=== PATIENT | male | born 1950 | race Caucasian/White ===

== ENCOUNTER 2018-06-26 12:43 | Day surgery (SDC) | END 2018-06-26 16:39 | disposition home or self-care (01) ==

== ENCOUNTER 2018-11-24 02:49 | Inpatient (IN) | payer OTHER ==
[~2018-11-24] VITALS: Ht 180.3 cm; Wt 82.6 kg
[2018-11-24] VITALS (11 sets, daily range): BP systolic 106–121; BP diastolic 59–77; PULSE 43–78; RESP 18–20; Ht 180.3 cm; Wt 82.6 kg
[2018-11-24] MEDS ORDERED: GEMF600T PO (04:28)
[2018-11-24] MEDS ORDERED: CHOL100062 PO (04:28)
[2018-11-24] MEDS ORDERED: OMEP20CA16 PO (04:28)
[2018-11-24] MEDS ORDERED: PROP10TA6 PO (04:28)
[2018-11-24] MEDS ORDERED: ATOR40TA68 PO (04:28)
[2018-11-24] MEDS ORDERED: CAPT25TA3 PO (04:28)
[2018-11-24] MEDS ORDERED: ASPI-817 PO (04:35)
[2018-11-24] MEDS ORDERED: NACL 0.9% 3 ML SYG IV SCH (05:00)
[2018-11-24] MEDS ORDERED: BISACODYL (EC) 5 MG TAB PO PRN (05:00)
[2018-11-24] MEDS ORDERED: ACETAMINOPHEN 325 MG TAB PO PRN (05:00)
[2018-11-24] MEDS ORDERED: DOCUSATE SODIUM 100 MG CAP PO PRN (05:00)
[2018-11-24] MEDS: PANTOPRAZOLE (EC) 40 MG TAB PO SCH (05:56)
--- NOTE | 2018-11-24 08:48 | HP ---
Date/Time of Note Date/Time of Note DATE: 11/24/18 TIME: 08:45 Assessment/Plan VTE Prophylaxis Risk score (from Nsg)>0 risk: 2 SCD applied (from Nsg): Yes Pharmacological prophylaxis: NA/contraindicated Pharm contraindication: low risk/ambulating Lines/Catheters IV Catheter Type (from Nrsg): Peripheral IV Assessment/Plan Hospital Course SUBJECTIVE: Walking in room, no acute distress. No chest pain, palpitation, shortness of breath, nausea, vomiting or other distress. OBJECTIVE: Vital signs-see below PHYSICAL EXAM: Constitutional: Well-developed, adequately built, lying in bed comfortably. Psych: nl mood/affect, no complaints Head: atraumatic, normocephalic Eyes: nl conjunctiva, nl sclera ENMT: mucosa pink and moist, nl external ears & nose Neck: non-tender, supple Respiratory: clear to auscultation, normal air movement Cardiovascular: nl pulses, regular rate and rhythm Gastrointestinal: non-tender, soft, bowel sounds active in all 4 quadrants. Musculoskeletal/extremities: nl extremities to inspection, motor strength equal bilaterally, no focal deficit. Normal pulses,no cyanosis, no edema. Neurological: Alert oriented 3,nl speech, nl strength Skin: nl turgor ASSESSMENT/PLAN: 68-year-old Farsi speaking male with a history of hypertension, hyperlipidemia, presented to outside hospital with sudden onset of left-sided chest pain with radiation to left, associated with cold sweats and mild shortness of breath. 1.Exertional Chest pain, rule out acute coronary syndrome. -Admit to telemetry floor. Aspirin, PRN nitroglycerin, PRN morphine and oxygen if indicated. -In light of high risk factors, classic angina-like pain, no cardiac workup in the past, patient would need further cardiac risk stratification/at the least a stress test=>Cardiology consult. -Meanwhile, we will rule out ACS with 3 sets of cardiac enzymes, repeat EKG. -Obtain a 2D echocardiogram as well. 2. Essential hypertension. -Patient with symptomatic bradycardia, hold propranolol which he takes at home. Continue MARILUZ inhibitor for blood pressure management. 3. Dyslipidemia -We will start patient on statin.cont.Lopid -Obtain a lipid panel and treat accordingly. 4. Sinus Bradycardia, asymptomatic -Again, we will hold propranolol and will monitor patient on telemetry. Follow- up cardiology recommendations. 5. Tobacco use/marijuana use/alcohol use. -Cessation advised. DVT prophylaxis: SCDs Due to prophylaxis: Not indicated CODE STATUS: Full code Diet: Low-cholesterol/low-fat diet. Rest of the management depend on hospital course. Approximately 60 m spent on this history and physical. Patient was seen in collaboration with Dr. Bran. Result Diagram: 11/24/18 0507 11/24/18 0507 Results 24hrs Laboratory Tests Test 11/24/18 05:07 White Blood Count 7.8 Red Blood Count 4.83 Hemoglobin 14.7 Hematocrit 44.3 Mean Corpuscular Volume 91.7 Mean Corpuscular Hemoglobin 30.4 Mean Corpuscular Hemoglobin Concent 33.2 Red Cell Distribution Width 13.0 Platelet Count 223 Mean Platelet Volume 10.8 H Immature Granulocytes % 0.300 Neutrophils % 33.8 L Lymphocytes % 45.6 Monocytes % 15.1 H Eosinophils % 4.6 Basophils % 0.6 Nucleated Red Blood Cells % 0.0 Immature Granulocytes # 0.020 Neutrophils # 2.6 Lymphocytes # 3.6 H Monocytes # 1.2 H Eosinophils # 0.4 Basophils # 0.1 Nucleated Red Blood Cells # 0.0 Sodium Level 142 Potassium Level 4.0 Chloride Level 105 Carbon Dioxide Level 26 Anion Gap 11 Blood Urea Nitrogen 19 Creatinine 1.15 Est Glomerular Filtrat Rate mL/min > 60 Glucose Level 94 Hemoglobin A1c 5.1 Calcium Level 10.1 Magnesium Level 2.1 Total Bilirubin 0.8 Direct Bilirubin 0.00 Indirect Bilirubin 0.8 Aspartate Amino Transf (AST/SGOT) 25 Alanine Aminotransferase (ALT/SGPT) 31 Alkaline Phosphatase 67 Creatine Kinase 98 Creatine Kinase Index 3.2 Creatinine Kinase MB (Mass) 3.10 H Troponin I < 0.012 Total Protein 7.5 Albumin 4.1 Globulin 3.40 H Albumin/Globulin Ratio 1.20 Triglycerides Level 83 Cholesterol Level 144 LDL Cholesterol, Calculated 82 HDL Cholesterol 45 Cholesterol/HDL Ratio 3.2 Thyroid Stimulating Hormone (TSH) 1.090 HPI/ROS Admit Date/Time Admit Date/Time Nov 24, 2018 at 03:54 Hx of Present Illness This is a 68-year-old Farsi speaking male with a history of hypertension, hyperlipidemia, initially presented to outside hospital where he presented with sudden onset of left-sided chest pain with radiation to left arm started overnight. Patient also had associated cold sweats, and mild shortness of breath. His symptoms were not related to any activities or rest. There was no alleviating or exacerbating factors. Patient denied similar episodes in the past. He never had any stress test or other cardiac intervention. Patient also does smoke 2 cigarettes every night, drink alcohol 3-4 times a week and smoke marijuana daily. Outside hospital initial labs unremarkable with a normal troponin. Twelve-lead EKG showed sinus rhythm with possible left anterior fascicular block. There was no acute ST or T wave changes. Patient was transferred to [facility] due to insurance capitation. ROS A 12 point review of system was assessed and is negative other than what is mentioned in the HPI. PMH/Family/Social Past Medical History See HPI Medications Current Medications IV Flush (NS 3 ml) 3 ml PER PROTOCOL IV ; Start 11/24/18 at 05:00 Nitroglycerin (Nitroglycerin (Sl Tab) 0.4 Mg) 1 tab Q5M PRN SL .CHEST PAIN; Start 11/24/18 at 05:00 Acetaminophen (Tylenol Tab) 650 mg Q6H PRN PO .PAIN 1-3 OR TEMP; Start 11/24/18 at 05:00 Docusate Sodium (Colace) 100 mg Q12H PRN PO .CONSTIPATION; Start 11/24/18 at 05:00 Bisacodyl (Dulcolax) 5 mg DAILY PRN PO .CONSTIPATION; Start 11/24/18 at 05:00 Aspirin (Halfprin) 81 mg DAILY PO ; Start 11/24/18 at 09:00 Atorvastatin Calcium (Lipitor) 20 mg DAILY@21 PO ; Start 11/24/18 at 21:00 Captopril (Capoten) 25 mg DAILY PO ; Start 11/24/18 at 09:00 Cholecalciferol (Vitamin D) 1,000 unit DAILY PO ; Start 11/24/18 at 09:00 Gemfibrozil (Lopid) 600 mg BID PO ; Start 11/24/18 at 09:00 Propranolol HCl (Inderal) 10 mg DAILY PO ; Start 11/24/18 at 09:00; Status Future Hold Pantoprazole (Protonix Tab) 40 mg DAILY@06 PO Last administered on 11/24/18at 05:56; Admin Dose 40 MG; Start 11/24/18 at 06:00 Coded Allergies: No Known Allergy (Unverified , 11/24/18) Past Surgical History None Social History Smokes 3 cigarettes/day, drinks alcohol 4 times a week. Smokes marijuana every day. Smoking Status: Never smoker Exam/Review of Systems Vital Signs Vitals Vital Signs Date Temp Pulse Resp B/P (MAP) Pulse Ox O2 O2 Flow FiO2 Time Delivery Rate 11/24/18 97.9 53 18 110/59 98 Room Air 07:49 (76) Intake and Output 11/23/18 11/23/18 11/24/18 1515:00 23:00 07:00 IntakeIntake Total 240 ml BalanceBalance 240 ml YANET COLLADO NP Nov 24, 2018 08:48
[2018-11-24] MEDS: CHOLECALCIFEROL 1,000 UNIT TAB PO SCH (08:50)
[2018-11-24] MEDS: ASPIRIN (EC) 81 MG TAB PO SCH (08:50)
[2018-11-24] MEDS: GEMFIBROZIL 600 MG TAB PO SCH ×2 (08:50→20:27)
[2018-11-24] MEDS ORDERED: PROPRANOLOL 10 MG TAB PO SCH (09:00)
--- NOTE | 2018-11-24 14:38 | RADRPT ---
Echocardiogram Report Patient Name: HOLLI CAALPatient ID: [id number] : 1950 (68y 9m)Study Date: 11/24/2018 9:03:05 AM Gender: MAccession #: [id number] Tech: Andre Salazar [facility] Location: 532 Ref.Physician: LADARIUS BUENROSTRO Height(Cm): BSA: Weight(Kg): Quality: AdequateAccount #: Procedures: Echocardiographic Report: Transthoracic echocardiogram with complete 2D, M-Mode, and doppler examination. Indications: Chest Pain. Measurements: 2D/M Mode Doppler Measurement Value Normal Range Measurement Value Normal Range LVIDd 2D 4.5 [ 4.2 - 5.8 ] cm AV Peak Darin 1.3 [ 100.0 - 170.0 ] cm/sec LVIDs 2D 2.8 [ 2.5 - 4.0 ] cm AV Peak PG 6.0 [ 2.0 - 9.0 ] mmHg LVPWd 2D 1.1 [ 0.6 - 1.0 ] cm LVOT Peak Darin 0.7 [ 70.0 - 110.0 ] cm/sec IVSd 2D 1.3 [ 0.6 - 1.0 ] cm LVOT Peak PG 2.0 [ 2.0 - 6.0 ] mmHg AoR Diam 2D 3.0 [ 2.6 - 3.4 ] cm MV E Peak Darin 0.6 [ 60.0 - 130.0 ] cm/sec EDV 2D 91.0 [ 62.0 - 150.0 ] ml MV A Peak Darin 0.6 [ 100.0 - 120.0 ] cm/sec ESV 2D 28.5 [ 21.0 - 61.0 ] ml MV E/A 1.1 [ 0.8 - 1.5 ] ratio EF 2D 68.7 [ 52.0 - 72.0 ] percent MV Decel Time 215 [ 104 - 258 ] msec LA Dimen 2D 3.6 [ 3.0 - 4.0 ] cm Lat E` Darin 0.1 [ 10.0 - 15.0 ] cm/sec Lateral E/E` 7.9 [ 1.0 - 2.0 ] ratio Med E` Darin 0.1 cm/sec MV E/A 1.1 [ 0.8 - 1.5 ] ratio TR Peak Darin 2.2 [ 100.0 - 280.0 ] cm/sec TR Peak PG 19.0 mmHg RVSP 29.0 [ 10.0 - 36.0 ] mmHg Findings: Left Ventricle: Normal left ventricular systolic function. Normal left ventricular cavity size. Sigmoid septum. Ejection fraction is visually estimated at 65 %. Tissue Doppler/Mitral Doppler indices are consistent with impaired relaxation (Stage I diastolic dysfunction). Right Ventricle: Normal right ventricular size. Normal right ventricular systolic function. Left Atrium: The left atrium is normal in size. Right Atrium: The right atrium is normal in size. Mitral Valve: Mild mitral leaflet calcification. Mild mitral annular calcification. Trace mitral regurgitation. Aortic Valve: No significant aortic stenosis or insufficiency. Aortic cusps appear mildly calcified. Tricuspid Valve: Normal appearance of the tricuspid valve. Estimated peak PA systolic pressure 29 mmHg. There is mild tricuspid regurgitation. Pulmonic Valve: Pulmonic valve not well visualized. Pericardium: Normal pericardium with no significant pericardial effusion. Aorta: Normal aortic root. IVC: Normal size and normal respiratory collapse consistent with normal right atrial pressure. Conclusions: Normal left ventricular systolic function. Normal left ventricular cavity size. Sigmoid septum. Ejection fraction is visually estimated at 65 %. Tissue Doppler/Mitral Doppler indices are consistent with impaired relaxation (Stage I diastolic dysfunction). Mild mitral leaflet calcification. Mild mitral annular calcification. Trace mitral regurgitation. No significant aortic stenosis or insufficiency. Aortic cusps appear mildly calcified. Normal appearance of the tricuspid valve. Estimated peak PA systolic pressure 29 mmHg. There is mild tricuspid regurgitation. Electronically Signed By: Vincenzo Sanchez 2018-11-24 14:37:48 PDT
--- NOTE | 2018-11-24 15:24 | CONS ---
Assessment/Plan Assessment/Plan Hospital Course (Demo Recall) Chest pain: Rule out ACS Hypertension mild Smoker History of alcohol use Recommendations Continue with aspirin We will change captopril to twice daily dose. Patient already ate lunch and had coffee today. We will schedule him for a Lexiscan stress test tomorrow Cardiac echo have been negative so far Thank you for his referral. We will continue to follow with you JIE GILBERT MD [facility] Consultation Date/Type/Reason Admit Date/Time Nov 24, 2018 at 03:54 Date of Consultation: Nov 24, 2018 Type of Consult Cardiology Reason for Consultation cp Requesting Provider: YANET COLLADO NP Date/Time of Note DATE: 11/24/18 TIME: 15:20 Hx of Present Illness Interventional cardiology consultation note Chief complaint: chest pain/diaphoresis Reason for consult: chest pain History of present illness: Thank you for this referral. This is a 68-year-old gentleman with history of borderline hypertension, smoker who presents emergency above complaint. Patient stated that he had an episode of profuse sweating anterior/left-sided mild chest pain and discomfort color going to his left arm. The pain itself lasted short amount of time but the left arm pain lasted much longer. Patient did present to outside emergency room. Initial EKG did not show much of any ischemia. He was transferred to our facility because of insurance reason. Patient currently chest pain-free. Allergies: No known drug allergies Medications were reviewed as per medical reconciliation sheet Family history: No early coronary artery disease Social history: Smokes 3 cigarettes/day, drinks alcohol 4 times a week. Smokes marijuana every day. Past medical history: Hypertension dyslipidemia Review of system: Patient denies all others except for above-mentioned Past Medical History Home Meds Reported Medications Aspirin* (Aspirin* EC) 81 Mg Tablet.dr, 81 MG PO DAILY, TAB 11/24/18 Cholecalciferol* (Vitamin D3*) 1,000 Unit Tablet, 1000 UNIT PO DAILY, TAB 11/24/18 Atorvastatin* (Atorvastatin*) 40 Mg Tablet, 20 MG PO QHS, #30 TAB-CAP 11/24/18 Gemfibrozil* (Lopid*) 600 Mg Tablet, 600 MG PO BID, TAB 11/24/18 Omeprazole* (Omeprazole*) 20 Mg Capsule.dr, 20 MG PO DAILY, #30 CAP 11/24/18 Propranolol Hcl* (Propranolol Hcl*) 10 Mg Tablet, 10 MG PO DAILY, TAB 11/24/18 Captopril* (Captopril*) 25 Mg Tablet, 25 MG PO DAILY, #60 TAB 11/24/18 Discontinued Reported Medications [Asa 81] No Conflict Check 06/26/18 Medications Current Medications IV Flush (NS 3 ml) 3 ml PER PROTOCOL IV ; Start 11/24/18 at 05:00 Nitroglycerin (Nitroglycerin (Sl Tab) 0.4 Mg) 1 tab Q5M PRN SL .CHEST PAIN; Start 11/24/18 at 05:00 Acetaminophen (Tylenol Tab) 650 mg Q6H PRN PO .PAIN 1-3 OR TEMP; Start 11/24/18 at 05:00 Docusate Sodium (Colace) 100 mg Q12H PRN PO .CONSTIPATION; Start 11/24/18 at 0 5:00 Bisacodyl (Dulcolax) 5 mg DAILY PRN PO .CONSTIPATION; Start 11/24/18 at 05:00 Aspirin (Halfprin) 81 mg DAILY PO Last administered on 11/24/18at 08:50; Admin Dose 81 MG; Start 11/24/18 at 09:00 Atorvastatin Calcium (Lipitor) 20 mg DAILY@21 PO ; Start 11/24/18 at 21:00 Captopril (Capoten) 25 mg DAILY PO Last administered on 11/24/18at 09:50; Admin Dose 25 MG; Start 11/24/18 at 09:00 Cholecalciferol (Vitamin D) 1,000 unit DAILY PO Last administered on 11/24/18at 08:50; Admin Dose 1,000 UNIT; Start 11/24/18 at 09:00 Gemfibrozil (Lopid) 600 mg BID PO Last administered on 11/24/18at 08:50; Admin Dose 600 MG; Start 11/24/18 at 09:00 Propranolol HCl (Inderal) 10 mg DAILY PO ; Start 11/24/18 at 09:00; Status Hold Pantoprazole (Protonix Tab) 40 mg DAILY@06 PO Last administered on 11/24/18at 0 5:56; Admin Dose 40 MG; Start 11/24/18 at 06:00 Allergies: Coded Allergies: No Known Allergy (Unverified , 11/24/18) Social History Smoking Status: Never smoker Exam/Review of Systems Vital Signs Vitals Vital Signs Date Temp Pulse Resp B/P (MAP) Pulse Ox O2 O2 Flow FiO2 Time Delivery Rate 11/24/18 98.5 78 18 121/77 96 Room Air 15:09 (92) Intake and Output 11/23/18 11/23/18 11/24/18 1515:00 23:00 07:00 IntakeIntake Total 240 ml BalanceBalance 240 ml Exam Exam General: no acute distress HEENT: NC/AT. pupils are equal. round. NECK: NO JVD. no stridor. CV: RRR. systolic murmur; no gallop or rubs. PULM: no wheezing or rhonchi. GI: SOFT, NT, ND, no rebound or guarding Extremity: trace B/L LE edema. no clubbing. neuro: awake and alert, OX3. Psych: calm and pleasant rectal: deferred : normal Echocardiogram was personally reviewed which shows: Normal left ventricular systolic function. Normal left ventricular cavity size. Sigmoid septum. Ejection fraction is visually estimated at 65 %. Tissue Doppler/Mitral Doppler indices are consistent with impaired relaxation (Stage I diastolic dysfunction). Mild mitral leaflet calcification. Mild mitral annular calcification. Trace mitral regurgitation. No significant aortic stenosis or insufficiency. Aortic cusps appear mildly calcified. Normal appearance of the tricuspid valve. Estimated peak PA systolic pressure 29 mmHg. There is mild tricuspid regurgitation. Labs Result Diagram: 11/24/18 0507 11/24/18 0507 Results 24hrs Laboratory Tests Test 11/24/18 05:07 11/24/18 11:52 White Blood Count 7.8 Red Blood Count 4.83 Hemoglobin 14.7 Hematocrit 44.3 Mean Corpuscular Volume 91.7 Mean Corpuscular Hemoglobin 30.4 Mean Corpuscular Hemoglobin Concent 33.2 Red Cell Distribution Width 13.0 Platelet Count 223 Mean Platelet Volume 10.8 H Immature Granulocytes % 0.300 Neutrophils % 33.8 L Lymphocytes % 45.6 Monocytes % 15.1 H Eosinophils % 4.6 Basophils % 0.6 Nucleated Red Blood Cells % 0.0 Immature Granulocytes # 0.020 Neutrophils # 2.6 Lymphocytes # 3.6 H Monocytes # 1.2 H Eosinophils # 0.4 Basophils # 0.1 Nucleated Red Blood Cells # 0.0 Sodium Level 142 Potassium Level 4.0 Chloride Level 105 Carbon Dioxide Level 26 Anion Gap 11 Blood Urea Nitrogen 19 Creatinine 1.15 Est Glomerular Filtrat Rate mL/min > 60 Glucose Level 94 Hemoglobin A1c 5.1 Calcium Level 10.1 Magnesium Level 2.1 Total Bilirubin 0.8 Direct Bilirubin 0.00 Indirect Bilirubin 0.8 Aspartate Amino Transf (AST/SGOT) 25 Alanine Aminotransferase (ALT/SGPT) 31 Alkaline Phosphatase 67 Creatine Kinase 98 74 Creatine Kinase Index 3.2 3.9 Creatinine Kinase MB (Mass) 3.10 H 2.92 H Troponin I < 0.012 < 0.012 Total Protein 7.5 Albumin 4.1 Globulin 3.40 H Albumin/Globulin Ratio 1.20 Triglycerides Level 83 Cholesterol Level 144 LDL Cholesterol, Calculated 82 HDL Cholesterol 45 Cholesterol/HDL Ratio 3.2 Thyroid Stimulating Hormone (TSH) 1.090 Medications Medications Current Medications IV Flush (NS 3 ml) 3 ml PER PROTOCOL IV ; Start 11/24/18 at 05:00 Nitroglycerin (Nitroglycerin (Sl Tab) 0.4 Mg) 1 tab Q5M PRN SL .CHEST PAIN; Start 11/24/18 at 05:00 Acetaminophen (Tylenol Tab) 650 mg Q6H PRN PO .PAIN 1-3 OR TEMP; Start 11/24/18 at 05:00 Docusate Sodium (Colace) 100 mg Q12H PRN PO .CONSTIPATION; Start 11/24/18 at 05:00 Bisacodyl (Dulcolax) 5 mg DAILY PRN PO .CONSTIPATION; Start 11/24/18 at 05:00 Aspirin (Halfprin) 81 mg DAILY PO Last administered on 11/24/18at 08:50; Admin Dose 81 MG; Start 11/24/18 at 09:00 Atorvastatin Calcium (Lipitor) 20 mg DAILY@21 PO ; Start 11/24/18 at 21:00 Captopril (Capoten) 25 mg DAILY PO Last administered on 11/24/18at 09:50; Admin Dose 25 MG; Start 11/24/18 at 09:00 Cholecalciferol (Vitamin D) 1,000 unit DAILY PO Last administered on 11/24/18at 08:50; Admin Dose 1,000 UNIT; Start 11/24/18 at 09:00 Gemfibrozil (Lopid) 600 mg BID PO Last administered on 11/24/18at 08:50; Admin Dose 600 MG; Start 11/24/18 at 09:00 Propranolol HCl (Inderal) 10 mg DAILY PO ; Start 11/24/18 at 09:00; Status Hold Pantoprazole (Protonix Tab) 40 mg DAILY@06 PO Last administered on 11/24/18at 05:56; Admin Dose 40 MG; Start 11/24/18 at 06:00 JIE GILBERT MD Nov 24, 2018 15:24
[2018-11-24] MEDS: ATORVASTATIN 20 MG TAB PO SCH (20:26)
[2018-11-25] VITALS (13 sets, daily range): BP systolic 108–142; BP diastolic 62–75; PULSE 55–79; RESP 16–20
[2018-11-25] MEDS: PANTOPRAZOLE (EC) 40 MG TAB PO SCH (05:02)
[2018-11-25] MEDS: CHOLECALCIFEROL 1,000 UNIT TAB PO SCH (07:25)
[2018-11-25] MEDS: ASPIRIN (EC) 81 MG TAB PO SCH (07:25)
[2018-11-25] MEDS: GEMFIBROZIL 600 MG TAB PO SCH ×2 (07:26→20:23)
--- NOTE | 2018-11-25 09:27 | CONS ---
Consult Date/Type/Reason Admit Date/Time Nov 24, 2018 at 03:54 Initial Consult Date 11/24/18 Requesting Provider: YANET COLLAOD NP Date/Time of Note DATE: 11/25/18 TIME: 09:26 Subjective Cardiology follow-up progress note Subjective: Case discussed with the staff telemetry was reviewed patient remains normal sinus rhythm Patient with no chest pain or pressure no palpitation no diaphoresis Objective: General: no acute distress HEENT: NC/AT. pupils are equal. round. NECK: NO JVD. no stridor. CV: RRR. systolic murmur; no gallop or rubs. PULM: no wheezing or rhonchi. GI: SOFT, NT, ND, no rebound or guarding Extremity: trace B/L LE edema. no clubbing. neuro: awake and alert, OX3. Psych: calm and pleasant rectal: deferred : normal Echocardiogram was personally reviewed which shows: Normal left ventricular systolic function. Normal left ventricular cavity size. Sigmoid septum. Ejection fraction is visually estimated at 65 %. Tissue Doppler/Mitral Doppler indices are consistent with impaired relaxation (Stage I diastolic dysfunction). Mild mitral leaflet calcification. Mild mitral annular calcification. Trace mitral regurgitation. No significant aortic stenosis or insufficiency. Aortic cusps appear mildly calcified. Normal appearance of the tricuspid valve. Estimated peak PA systolic pressure 29 mmHg. There is mild tricuspid regurgitation. Objective Vitals Vital Signs Date Temp Pulse Resp B/P (MAP) Pulse Ox O2 O2 Flow FiO2 Time Delivery Rate 11/25/18 55 08:52 11/25/18 97.6 16 115/62 97 07:11 (79) 11/25/18 Room Air 04:45 Intake and Output 11/24/18 11/24/18 11/25/18 1515:00 23:00 07:00 IntakeIntake Total 1000 ml 700 ml BalanceBalance 1000 ml 700 ml Results/Medications Result Diagram: 11/25/1870611/25/1807 Results 24 hrs Laboratory Tests Test 11/24/18 11:52 11/25/18 07:07 Creatine Kinase 74 Creatine Kinase Index 3.9 Creatinine Kinase MB (Mass) 2.92 H Troponin I < 0.012 White Blood Count 6.9 Red Blood Count 4.94 Hemoglobin 14.9 Hematocrit 45.8 Mean Corpuscular Volume 92.7 Mean Corpuscular Hemoglobin 30.2 Mean Corpuscular Hemoglobin Concent 32.5 Red Cell Distribution Width 13.3 Platelet Count 236 Mean Platelet Volume 11.0 H Immature Granulocytes % 0.600 H Neutrophils % 40.3 Lymphocytes % 38.1 Monocytes % 15.8 H Eosinophils % 4.5 Basophils % 0.7 Nucleated Red Blood Cells % 0.0 Immature Granulocytes # 0.040 H Neutrophils # 2.8 Lymphocytes # 2.6 Monocytes # 1.1 H Eosinophils # 0.3 Basophils # 0.1 Nucleated Red Blood Cells # 0.0 Sodium Level 143 Potassium Level 4.3 Chloride Level 106 Carbon Dioxide Level 25 Anion Gap 12 Blood Urea Nitrogen 26 H Creatinine 1.21 Est Glomerular Filtrat Rate mL/min 60 Glucose Level 92 Calcium Level 10.8 H Home Meds Reported Medications Aspirin* (Aspirin* EC) 81 Mg Tablet.dr, 81 MG PO DAILY, TAB 11/24/18 Cholecalciferol* (Vitamin D3*) 1,000 Unit Tablet, 1000 UNIT PO DAILY, TAB 11/24/18 Atorvastatin* (Atorvastatin*) 40 Mg Tablet, 20 MG PO QHS, #30 TAB-CAP 11/24/18 Gemfibrozil* (Lopid*) 600 Mg Tablet, 600 MG PO BID, TAB 11/24/18 Omeprazole* (Omeprazole*) 20 Mg Capsule.dr, 20 MG PO DAILY, #30 CAP 11/24/18 Propranolol Hcl* (Propranolol Hcl*) 10 Mg Tablet, 10 MG PO DAILY, TAB 11/24/18 Captopril* (Captopril*) 25 Mg Tablet, 25 MG PO DAILY, #60 TAB 11/24/18 Discontinued Reported Medications [Asa 81] No Conflict Check 06/26/18 Medications Current Medications IV Flush (NS 3 ml) 3 ml PER PROTOCOL IV ; Start 11/24/18 at 05:00 Nitroglycerin (Nitroglycerin (Sl Tab) 0.4 Mg) 1 tab Q5M PRN SL .CHEST PAIN; Start 11/24/18 at 05:00 Acetaminophen (Tylenol Tab) 650 mg Q6H PRN PO .PAIN 1-3 OR TEMP; Start 11/24/18 at 05:00 Docusate Sodium (Colace) 100 mg Q12H PRN PO .CONSTIPATION; Start 11/24/18 at 05:00 Bisacodyl (Dulcolax) 5 mg DAILY PRN PO .CONSTIPATION; Start 11/24/18 at 05:00 Aspirin (Halfprin) 81 mg DAILY PO Last administered on 11/25/18 07:25; Admin Dose 81 MG; Start 11/24/18 at 09:00 Atorvastatin Calcium (Lipitor) 20 mg DAILY@21 PO Last administered on 11/24/18 20:26; Admin Dose 20 MG; Start 11/24/18 at 21:00 Cholecalciferol (Vitamin D) 1,000 unit DAILY PO Last administered on 11/25/18 07:25; Admin Dose 1,000 UNIT; Start 11/24/18 at 09:00 Gemfibrozil (Lopid) 600 mg BID PO Last administered on 11/25/18 07:26; Admin Dose 600 MG; Start 11/24/18 at 09:00 Propranolol HCl (Inderal) 10 mg DAILY PO ; Start 11/24/18 at 09:00; Status Hold Pantoprazole (Protonix Tab) 40 mg DAILY@06 PO Last administered on 11/25/18 05:02; Admin Dose 40 MG; Start 11/24/18 at 06:00 Captopril (Capoten) 12.5 mg BID PO Last administered on 11/25/18 07:26; Admin Dose 12.5 MG; Start 11/24/18 at 21:00 Assessment/Plan Hospital Course (Demo Recall) Chest pain: Rule out ACS Hypertension mild stable now Smoker History of alcohol use Recommendations Continue with aspirin captopril twice daily dose. Lexiscan stress test today Thank you for his referral. We will continue to follow with you JIE GILBERT MD [facility] JIE GILBERT MD Nov 25, 2018 09:27
[2018-11-25] MEDS ORDERED: REGADENOSON 0.4 MG/5 ML SYG ONE (09:51)
--- NOTE | 2018-11-25 12:18 | PN ---
Date/Time of Note Date/Time of Note DATE: 11/25/18 TIME: 12:12 Assessment/Plan VTE Prophylaxis Risk score (from Nsg)>0 risk: 2 SCD applied (from Ns): No SCD contraindicated: low risk/ambulating Pharmacological prophylaxis: heparin Lines/Catheters IV Catheter Type (from Nrs): Saline Lock Urinary Cath still in place: No Assessment/Plan Hospital Course SUBJECTIVE: No further chest pain reported. OBJECTIVE: Vital signs-see below PHYSICAL EXAM: Constitutional: Well-developed, adequately built, lying in bed comfortably. Psych: nl mood/affect, no complaints Head: atraumatic, normocephalic Eyes: nl conjunctiva, nl sclera ENMT: mucosa pink and moist, nl external ears & nose Neck: non-tender, supple Respiratory: clear to auscultation, normal air movement Cardiovascular: nl pulses, regular rate and rhythm Gastrointestinal: non-tender, soft, bowel sounds active in all 4 quadrants. Musculoskeletal/extremities: nl extremities to inspection, motor strength equal bilaterally, no focal deficit. Normal pulses,no cyanosis, no edema. Neurological: Alert oriented 3,nl speech, nl strength Skin: nl turgor ASSESSMENT/PLAN: 68-year-old Farsi speaking male with a history of hypertension, hyperlipidemia, presented to outside hospital with sudden onset of left-sided chest pain with radiation to left, associated with cold sweats and mild shortness of breath. 1.Exertional Chest pain w/ positive Lexiscan stress test, concerning for ACS -cont Aspirin, statin, PRN nitroglycerin, PRN morphine and oxygen if indicated. -Follow-up cardiology recommendations. 2. Essential hypertension. -Continue MARILUZ inhibitors. 3. Dyslipidemia -Continue statin and Lopid 4. Sinus Bradycardia, asymptomatic -Stable. Continue holding beta-blockers. Follow-up cardiology recommendations 5. Tobacco use/marijuana use/alcohol use. -Cessation advised. DVT prophylaxis: SCDs Due to prophylaxis: Not indicated CODE STATUS: Full code Diet: Low-cholesterol/low-fat diet. Disposition: Patient with positive stress test. Follow-up cardiology recommendations. Patient was seen in collaboration with Dr. Bran. Result Diagram: 11/25/18 0707 11/25/18 0707 Results 24hrs Laboratory Tests Test 11/25/18 07:07 White Blood Count 6.9 Red Blood Count 4.94 Hemoglobin 14.9 Hematocrit 45.8 Mean Corpuscular Volume 92.7 Mean Corpuscular Hemoglobin 30.2 Mean Corpuscular Hemoglobin Concent 32.5 Red Cell Distribution Width 13.3 Platelet Count 236 Mean Platelet Volume 11.0 H Immature Granulocytes % 0.600 H Neutrophils % 40.3 Lymphocytes % 38.1 Monocytes % 15.8 H Eosinophils % 4.5 Basophils % 0.7 Nucleated Red Blood Cells % 0.0 Immature Granulocytes # 0.040 H Neutrophils # 2.8 Lymphocytes # 2.6 Monocytes # 1.1 H Eosinophils # 0.3 Basophils # 0.1 Nucleated Red Blood Cells # 0.0 Sodium Level 143 Potassium Level 4.3 Chloride Level 106 Carbon Dioxide Level 25 Anion Gap 12 Blood Urea Nitrogen 26 H Creatinine 1.21 Est Glomerular Filtrat Rate mL/min 60 Glucose Level 92 Calcium Level 10.8 H Exam/Review of Systems Exam Vitals Vital Signs Date Temp Pulse Resp B/P (MAP) Pulse Ox O2 O2 Flow FiO2 Time Delivery Rate 11/25/18 55 08:52 11/25/18 97.6 16 115/62 97 07:11 (79) 11/25/18 Room Air 04:45 Intake and Output 11/24/18 11/24/18 11/25/18 1515:00 23:00 07:00 IntakeIntake Total 1000 ml 700 ml BalanceBalance 1000 ml 700 ml Results Results 24hrs Laboratory Tests Test 11/25/18 07:07 White Blood Count 6.9 Red Blood Count 4.94 Hemoglobin 14.9 Hematocrit 45.8 Mean Corpuscular Volume 92.7 Mean Corpuscular Hemoglobin 30.2 Mean Corpuscular Hemoglobin Concent 32.5 Red Cell Distribution Width 13.3 Platelet Count 236 Mean Platelet Volume 11.0 H Immature Granulocytes % 0.600 H Neutrophils % 40.3 Lymphocytes % 38.1 Monocytes % 15.8 H Eosinophils % 4.5 Basophils % 0.7 Nucleated Red Blood Cells % 0.0 Immature Granulocytes # 0.040 H Neutrophils # 2.8 Lymphocytes # 2.6 Monocytes # 1.1 H Eosinophils # 0.3 Basophils # 0.1 Nucleated Red Blood Cells # 0.0 Sodium Level 143 Potassium Level 4.3 Chloride Level 106 Carbon Dioxide Level 25 Anion Gap 12 Blood Urea Nitrogen 26 H Creatinine 1.21 Est Glomerular Filtrat Rate mL/min 60 Glucose Level 92 Calcium Level 10.8 H Medications Medication Current Medications IV Flush (NS 3 ml) 3 ml PER PROTOCOL IV ; Start 11/24/18 at 05:00 Nitroglycerin (Nitroglycerin (Sl Tab) 0.4 Mg) 1 tab Q5M PRN SL .CHEST PAIN; Start 11/24/18 at 05:00 Acetaminophen (Tylenol Tab) 650 mg Q6H PRN PO .PAIN 1-3 OR TEMP; Start 11/24/18 at 05:00 Docusate Sodium (Colace) 100 mg Q12H PRN PO .CONSTIPATION; Start 11/24/18 at 0 5:00 Bisacodyl (Dulcolax) 5 mg DAILY PRN PO .CONSTIPATION; Start 11/24/18 at 05:00 Aspirin (Halfprin) 81 mg DAILY PO Last administered on 11/25/18at 07:25; Admin Dose 81 MG; Start 11/24/18 at 09:00 Atorvastatin Calcium (Lipitor) 20 mg DAILY@21 PO Last administered on 11/24/18at 20:26; Admin Dose 20 MG; Start 11/24/18 at 21:00 Cholecalciferol (Vitamin D) 1,000 unit DAILY PO Last administered on 11/25/18 07:25; Admin Dose 1,000 UNIT; Start 11/24/18 at 09:00 Gemfibrozil (Lopid) 600 mg BID PO Last administered on 11/25/18 07:26; Admin Dose 600 MG; Start 11/24/18 at 09:00 Propranolol HCl (Inderal) 10 mg DAILY PO ; Start 11/24/18 at 09:00; Status Hold Pantoprazole (Protonix Tab) 40 mg DAILY@06 PO Last administered on 11/25/18at 05:02; Admin Dose 40 MG; Start 11/24/18 at 06:00 Captopril (Capoten) 12.5 mg BID PO Last administered on 11/25/18 07:26; Admin Dose 12.5 MG; Start 11/24/18 at 21:00 YANET COLLADO NP Nov 25, 2018 12:18
[2018-11-25] MEDS: NITROGLYCERIN (SL) 0.4 MG TAB SL PRN (14:33)
[2018-11-25] MEDS ORDERED: INSULIN ASPART [NOVOLOG] 3 ML PEN SC SCH (17:55)
[2018-11-25] MEDS: ATORVASTATIN 20 MG TAB PO SCH (20:23)
[2018-11-25] MEDS: HEPARIN 5,000 UNIT/1 ML VIAL SC SCH (20:30)
[2018-11-26] VITALS (19 sets, daily range): BP systolic 93–148; BP diastolic 59–70; PULSE 48–66; RESP 16
[2018-11-26] MEDS ORDERED: ACCU-CHEK XX SCH (02:00)
[2018-11-26] MEDS: NITROGLYCERIN (SL) 0.4 MG TAB SL PRN (02:07)
[2018-11-26] MEDS ORDERED: ALPRAZOLAM 1 MG TAB PO ONE (03:00)
[2018-11-26] MEDS: PANTOPRAZOLE (EC) 40 MG TAB PO SCH (06:31)
[2018-11-26] MEDS ORDERED: INSULIN GLARGINE [LANTus] (100 UNITS/ML) SYG SC SCH (08:00)
--- NOTE | 2018-11-26 08:42 | CONS ---
Consult Date/Type/Reason Admit Date/Time Nov 25, 2018 at 17:46 Initial Consult Date 11/24/18 Requesting Provider: YANET COLLADO NP Date/Time of Note DATE: 11/26/18 TIME: 08:39 Subjective Cardiology follow-up progress note Subjective: Case discussed with the staff telemetry was reviewed patient remains normal sinus rhythm Patient with episodes of sharp shooting chest pain left-sided today going to the back lasting a few seconds at a time on Objective: General: no acute distress HEENT: NC/AT. pupils are equal. round. NECK: NO JVD. no stridor. CV: RRR. systolic murmur; no gallop or rubs. PULM: no wheezing or rhonchi. GI: SOFT, NT, ND, no rebound or guarding Extremity: trace B/L LE edema. no clubbing. neuro: awake and alert, OX3. Psych: calm and pleasant rectal: deferred : normal Echocardiogram was personally reviewed which shows: Normal left ventricular systolic function. Normal left ventricular cavity size. Sigmoid septum. Ejection fraction is visually estimated at 65 %. Tissue Doppler/Mitral Doppler indices are consistent with impaired relaxation (Stage I diastolic dysfunction). Mild mitral leaflet calcification. Mild mitral annular calcification. Trace mitral regurgitation. No significant aortic stenosis or insufficiency. Aortic cusps appear mildly calcified. Normal appearance of the tricuspid valve. Estimated peak PA systolic pressure 29 mmHg. There is mild tricuspid regurgitation. Lexiscan stress test done 11/25/2018 shows 1. Positive myocardial perfusion scan. 2. Subtle mild reversible ischemia along the inferolateral wall. 3. Normal wall motion with normal ejection fraction of 77%. Objective Vitals Vital Signs Date Temp Pulse Resp B/P (MAP) Pulse Ox O2 O2 Flow FiO2 Time Delivery Rate 11/26/18 59 08:37 11/26/18 97.4 16 112/70 97 07:40 (84) 11/25/18 Room Air 04:45 Intake and Output 11/25/18 11/25/18 11/26/18 1515:00 23:00 07:00 IntakeIntake Total 1100 ml 1300 ml BalanceBalance 1100 ml 1300 ml Results/Medications Result Diagram: 11/26/18 0630 11/26/18 0630 Results 24 hrs Laboratory Tests Test 11/26/18 06:30 White Blood Count 6.3 Red Blood Count 4.48 L Hemoglobin 13.8 L Hematocrit 41.6 L Mean Corpuscular Volume 92.9 Mean Corpuscular Hemoglobin 30.8 Mean Corpuscular Hemoglobin Concent 33.2 Red Cell Distribution Width 13.2 Platelet Count 215 Mean Platelet Volume 10.8 H Immature Granulocytes % 0.300 Neutrophils % 30.5 L Lymphocytes % 50.7 Monocytes % 13.8 H Eosinophils % 4.1 Basophils % 0.6 Nucleated Red Blood Cells % 0.0 Immature Granulocytes # 0.020 Neutrophils # 1.9 Lymphocytes # 3.2 H Monocytes # 0.9 Eosinophils # 0.3 Basophils # 0.0 Nucleated Red Blood Cells # 0.0 Sodium Level 142 Potassium Level 4.0 Chloride Level 107 Carbon Dioxide Level 26 Anion Gap 9 Blood Urea Nitrogen 24 H Creatinine 1.14 Est Glomerular Filtrat Rate mL/min > 60 Glucose Level 94 Calcium Level 10.1 Magnesium Level 1.9 Home Meds Reported Medications Aspirin* (Aspirin* EC) 81 Mg Tablet.dr, 81 MG PO DAILY, TAB 11/24/18 Cholecalciferol* (Vitamin D3*) 1,000 Unit Tablet, 1000 UNIT PO DAILY, TAB 11/24/18 Atorvastatin* (Atorvastatin*) 40 Mg Tablet, 20 MG PO QHS, #30 TAB-CAP 11/24/18 Gemfibrozil* (Lopid*) 600 Mg Tablet, 600 MG PO BID, TAB 11/24/18 Omeprazole* (Omeprazole*) 20 Mg Capsule.dr, 20 MG PO DAILY, #30 CAP 11/24/18 Propranolol Hcl* (Propranolol Hcl*) 10 Mg Tablet, 10 MG PO DAILY, TAB 11/24/18 Captopril* (Captopril*) 25 Mg Tablet, 25 MG PO DAILY, #60 TAB 11/24/18 Discontinued Reported Medications [Asa 81] No Conflict Check 06/26/18 Medications Current Medications IV Flush (NS 3 ml) 3 ml PER PROTOCOL IV ; Start 11/24/18 at 05:00 Nitroglycerin (Nitroglycerin (Sl Tab) 0.4 Mg) 1 tab Q5M PRN SL .CHEST PAIN Last administered on 11/26/18at 02:07; Admin Dose 1 TAB; Start 11/24/18 at 05:00 Acetaminophen (Tylenol Tab) 650 mg Q6H PRN PO .PAIN 1-3 OR TEMP; Start 11/24/18 at 05:00 Docusate Sodium (Colace) 100 mg Q12H PRN PO .CONSTIPATION; Start 11/24/18 at 05:00 Bisacodyl (Dulcolax) 5 mg DAILY PRN PO .CONSTIPATION; Start 11/24/18 at 05:00 Aspirin (Halfprin) 81 mg DAILY PO Last administered on 11/25/18 07:25; Admin Dose 81 MG; Start 11/24/18 at 09:00 Atorvastatin Calcium (Lipitor) 20 mg DAILY@21 PO Last administered on 11/25/18 20:23; Admin Dose 20 MG; Start 11/24/18 at 21:00 Cholecalciferol (Vitamin D) 1,000 unit DAILY PO Last administered on 11/25/18 07:25; Admin Dose 1,000 UNIT; Start 11/24/18 at 09:00 Gemfibrozil (Lopid) 600 mg BID PO Last administered on 11/25/18 20:23; Admin Dose 600 MG; Start 11/24/18 at 09:00 Propranolol HCl (Inderal) 10 mg DAILY PO ; Start 11/24/18 at 09:00; Status Hold Pantoprazole (Protonix Tab) 40 mg DAILY@06 PO Last administered on 11/26/18 06:31; Admin Dose 40 MG; Start 11/24/18 at 06:00 Captopril (Capoten) 12.5 mg BID PO Last administered on 11/25/18 20:24; Admin Dose 12.5 MG; Start 11/24/18 at 21:00 Heparin Sodium (Porcine) (Heparin (5000 Units/1ml)) 5,000 unit BID SC Last administered on 11/25/18 20:30; Admin Dose 5,000 UNIT; Start 11/25/18 at 21:00 Assessment/Plan Hospital Course (Demo Recall) Chest pain: ? ACS Hypertension mild stable now Smoker History of alcohol use Mildly abnormal troponin and recurrent chest pain Recommendations Continue with aspirin captopril twice daily dose. not on betablocker due to bradycardia Lexiscan stress test given his recurrent chest pain , coronary angiography and possible PCI was offered. Risks benefits alternatives of procedure including but not limited to risk of infection vascular complication bleeding complication SC stroke arrhythmia renal failure etc. discussed with the patient patient consented to procedure. Patient was scheduled for this evening for the procedure. Thank you for his referral. We will continue to follow with you JIE GILBERT MD [facility] JIE GILBERT MD Nov 26, 2018 08:42
[2018-11-26] MEDS: ASPIRIN (EC) 81 MG TAB PO SCH (08:53)
[2018-11-26] MEDS: CHOLECALCIFEROL 1,000 UNIT TAB PO SCH (08:53)
[2018-11-26] MEDS: GEMFIBROZIL 600 MG TAB PO SCH ×2 (08:53→20:32)
[2018-11-26] MEDS: HEPARIN 5,000 UNIT/1 ML VIAL SC SCH ×2 (08:55→20:44)
[2018-11-26] MEDS: ISOSORBIDE DINITRATE 10 MG TAB PO SCH ×2 (08:58→12:54)
--- NOTE | 2018-11-26 10:18 | PN ---
Date/Time of Note Date/Time of Note DATE: 11/26/18 TIME: 10:14 Assessment/Plan VTE Prophylaxis Risk score (from Nsg)>0 risk: 2 SCD applied (from Ns): No SCD contraindicated: low risk/ambulating Pharmacological prophylaxis: heparin Lines/Catheters IV Catheter Type (from Nrs): Saline Lock Urinary Cath still in place: No Assessment/Plan Hospital Course SUBJECTIVE: Ambulating in hallway. No chest pain or other distress. OBJECTIVE: Vital signs-see below PHYSICAL EXAM: Constitutional: Well-developed, adequately built, lying in bed comfortably. Psych: nl mood/affect, no complaints Head: atraumatic, normocephalic Eyes: nl conjunctiva, nl sclera ENMT: mucosa pink and moist, nl external ears & nose Neck: non-tender, supple Respiratory: clear to auscultation, normal air movement Cardiovascular: nl pulses, regular rate and rhythm Gastrointestinal: non-tender, soft, bowel sounds active in all 4 quadrants. Musculoskeletal/extremities: nl extremities to inspection, motor strength equal bilaterally, no focal deficit. Normal pulses,no cyanosis, no edema. Neurological: Alert oriented 3,nl speech, nl strength Skin: nl turgor ASSESSMENT/PLAN: 68-year-old Farsi speaking male with a history of hypertension, hyperlipidemia, presented to outside hospital with sudden onset of left-sided chest pain with radiation to left, associated with cold sweats and mild shortness of breath. 1.Exertional Chest pain w/ positive Lexiscan stress test, concerning for ACS -cont Aspirin/statin/PRN Nitro. Not a candidate for beta-jones secondary to bradycardia. -Patient is scheduled for cardiac catheterization today. -Follow-up cardiology recommendations. 2. Essential hypertension. -Continue MARILUZ inhibitors. 3. Dyslipidemia -Continue statin and Lopid 4. Sinus Bradycardia, asymptomatic -Stable. 5. Tobacco use/marijuana use/alcohol use. -Cessation advised. DVT prophylaxis: SCDs/Heparin Due to prophylaxis: Not indicated CODE STATUS: Full code Diet: Low-cholesterol/low-fat diet. Disposition: Patient with positive stress test.plan heart cath today. f/u cards recs. Patient was seen in collaboration with Dr. Bran. Result Diagram: 11/26/18 0630 11/26/18 0630 Results 24hrs Laboratory Tests Test 11/26/18 06:30 White Blood Count 6.3 Red Blood Count 4.48 L Hemoglobin 13.8 L Hematocrit 41.6 L Mean Corpuscular Volume 92.9 Mean Corpuscular Hemoglobin 30.8 Mean Corpuscular Hemoglobin Concent 33.2 Red Cell Distribution Width 13.2 Platelet Count 215 Mean Platelet Volume 10.8 H Immature Granulocytes % 0.300 Neutrophils % 30.5 L Lymphocytes % 50.7 Monocytes % 13.8 H Eosinophils % 4.1 Basophils % 0.6 Nucleated Red Blood Cells % 0.0 Immature Granulocytes # 0.020 Neutrophils # 1.9 Lymphocytes # 3.2 H Monocytes # 0.9 Eosinophils # 0.3 Basophils # 0.0 Nucleated Red Blood Cells # 0.0 Sodium Level 142 Potassium Level 4.0 Chloride Level 107 Carbon Dioxide Level 26 Anion Gap 9 Blood Urea Nitrogen 24 H Creatinine 1.14 Est Glomerular Filtrat Rate mL/min > 60 Glucose Level 94 Calcium Level 10.1 Magnesium Level 1.9 Exam/Review of Systems Exam Vitals Vital Signs Date Temp Pulse Resp B/P (MAP) Pulse Ox O2 O2 Flow FiO2 Time Delivery Rate 11/26/18 59 08:37 11/26/18 97.4 16 112/70 97 07:40 (84) 11/25/18 Room Air 04:45 Intake and Output 11/25/18 11/25/18 11/26/18 1515:00 23:00 07:00 IntakeIntake Total 1100 ml 1300 ml BalanceBalance 1100 ml 1300 ml Results Results 24hrs Laboratory Tests Test 11/26/18 06:30 White Blood Count 6.3 Red Blood Count 4.48 L Hemoglobin 13.8 L Hematocrit 41.6 L Mean Corpuscular Volume 92.9 Mean Corpuscular Hemoglobin 30.8 Mean Corpuscular Hemoglobin Concent 33.2 Red Cell Distribution Width 13.2 Platelet Count 215 Mean Platelet Volume 10.8 H Immature Granulocytes % 0.300 Neutrophils % 30.5 L Lymphocytes % 50.7 Monocytes % 13.8 H Eosinophils % 4.1 Basophils % 0.6 Nucleated Red Blood Cells % 0.0 Immature Granulocytes # 0.020 Neutrophils # 1.9 Lymphocytes # 3.2 H Monocytes # 0.9 Eosinophils # 0.3 Basophils # 0.0 Nucleated Red Blood Cells # 0.0 Sodium Level 142 Potassium Level 4.0 Chloride Level 107 Carbon Dioxide Level 26 Anion Gap 9 Blood Urea Nitrogen 24 H Creatinine 1.14 Est Glomerular Filtrat Rate mL/min > 60 Glucose Level 94 Calcium Level 10.1 Magnesium Level 1.9 Medications Medication Current Medications IV Flush (NS 3 ml) 3 ml PER PROTOCOL IV ; Start 11/24/18 at 05:00 Nitroglycerin (Nitroglycerin (Sl Tab) 0.4 Mg) 1 tab Q5M PRN SL .CHEST PAIN Last administered on 11/26/18 02:07; Admin Dose 1 TAB; Start 11/24/18 at 05:00 Acetaminophen (Tylenol Tab) 650 mg Q6H PRN PO .PAIN 1-3 OR TEMP; Start 11/24/18 at 05:00 Docusate Sodium (Colace) 100 mg Q12H PRN PO .CONSTIPATION; Start 11/24/18 at 05:00 Bisacodyl (Dulcolax) 5 mg DAILY PRN PO .CONSTIPATION; Start 11/24/18 at 05:00 Aspirin (Halfprin) 81 mg DAILY PO Last administered on 11/26/18 08:53; Admin Dose 81 MG; Start 11/24/18 at 09:00 Atorvastatin Calcium (Lipitor) 20 mg DAILY@21 PO Last administered on 11/25/18 20:23; Admin Dose 20 MG; Start 11/24/18 at 21:00 Cholecalciferol (Vitamin D) 1,000 unit DAILY PO Last administered on 11/26/18 08:53; Admin Dose 1,000 UNIT; Start 11/24/18 at 09:00 Gemfibrozil (Lopid) 600 mg BID PO Last administered on 11/26/18 08:53; Admin Dose 600 MG; Start 11/24/18 at 09:00 Propranolol HCl (Inderal) 10 mg DAILY PO ; Start 11/24/18 at 09:00; Status Hold Pantoprazole (Protonix Tab) 40 mg DAILY@06 PO Last administered on 11/26/18 06:31; Admin Dose 40 MG; Start 11/24/18 at 06:00 Captopril (Capoten) 12.5 mg BID PO Last administered on 11/26/18 08:54; Admin Dose 12.5 MG; Start 11/24/18 at 21:00 Heparin Sodium (Porcine) (Heparin (5000 Units/1ml)) 5,000 unit BID SC Last administered on 3/13/19at 08:55; Admin Dose 5,000 UNIT; Start 11/25/18 at 21:00 Isosorbide Dinitrate (Isordil) 10 mg TID PO Last administered on 11/26/18at 08:58; Admin Dose 10 MG; Start 11/26/18 at 09:00 YANET COLLADO NP Nov 26, 2018 10:18
--- NOTE | 2018-11-26 16:03 | RADRPT ---
Vent Rate: 65 bpm RR Interval: 0 msec GA Interval: 160 msec QRS Duration: 86 msec QT Interval: 398 msec QTC Interval: 413 msec P-R-T Hominy: 52 - -17 - 22 degrees Normal sinus rhythm Normal ECG Electronically Signed By: Davian Rodriguez
[2018-11-26] MEDS ORDERED: SOD CHLORIDE 0.9% 500 ML ONE (17:23)
[2018-11-26] MEDS ORDERED: IODIXANOL LOCM 100 ML BTL ONE ×2 (17:23→17:24)
[2018-11-26] MEDS ORDERED: LIDOCAINE 1% (MDV) 20 ML INJ ONE (17:24)
[2018-11-26] MEDS ORDERED: VERAPAMIL 5 MG INJ ONE (17:24)
[2018-11-26] MEDS ORDERED: NITROGLYCERIN (IC) 100 MCG/ML INJ ONE (17:25)
[2018-11-26] MEDS ORDERED: FENTAnyl 50 MCG/ML VIAL ONE (17:25)
[2018-11-26] MEDS ORDERED: MIDAZOLAM 1 MG/ML 2 ML INJ ONE (17:25)
[2018-11-26] MEDS ORDERED: HEPARIN 1000 UNITS/ML 10 ML INJ ONE (17:25)
[2018-11-26] MEDS ORDERED: SOD CHLORIDE 0.9% 1,000 ML IV SCH (18:13)
--- NOTE | 2018-11-26 18:20 | OPR ---
Date/Time of Note Date/Time of Note DATE: 11/26/18 TIME: 18:15 Operative Report Procedure Date: Nov 26, 2018 Preoperative Diagnosis Recurrent chest pain abnormal stress test Postoperative Diagnosis Same Operation/Procedure Performed [facility] Surgeon see signature line Order Editor n/a Anesthesia Type: moderate sedation Estimated Blood Loss: minimal Transfusion none Specimen NONE Grafts/Implants none Complications none Procedure Description Automobile Service Writer: Jie Sanchez MD Indication: 65-year-old gentleman with recurrent chest pain and abnormal stress test Procure performed: #1 left heart catheterization and selective right and left coronary angiogram using left radial approach. #2 ultrasound guided placement of radial arterial sheath placement 3. Moderate sedation for more than 30 minutes Findings: 1. Left main: is long and normal and birfurcates to LAD & LCX. 2. LAD: has no significant stenosis at proximal or mid LAD, intramuscular babatunde dging was noted at at mid LAD. Diagonal is large with about 30% focal stenosis 3. Left circumflex artery: is nondominant. it has no significant stenosis 4. RCA: is large and dominant. it has 5. LV 98/1. Aortic pressure by pull back 86/40 Procedure in detail: Written informed consent with obtained after risks benefits and alternatives discussed with the patient in detail. risks including but not limited to risk of infection vascular complications, bleeding complications, [place] stroke arrhythmia renal failure at even were discussed with the patient in detail. Patient was brought into the cardiac aquatic laborer and placed in supine position. Radial area was prepped and draped in regular sterile fashion and then he was in anesthetized using 1% lidocaine. Under surgical dental assistant of ultrasound, radial artery was cannulated and using modified seldinger technique a 6 [place] sheath was placed in the radial artery. a JR4 was advanced to engage the left ventricle hemodynamics as recorded by pullback aortic pressure was measured. JR4 catheter was advanced and engaged into the right coronary artery and angiographic view was obtained. Then a JL3.5 catheter was advanced and engaged into the left main coronary artery and angiographic view was obtained. Final angiographic view was obtained which showed CATY-3 flow no evidence of dissection and no significant residual stenosis at the site of the stent. Patient tolerated the procedure well with no complication. contrast used: 32 CCvisipaque Conclusions: No significant obstructive coronary artery disease is seen Recommendations: medical therapy. JIE SANCHEZ MD Nov 26, 2018 18:20
[2018-11-26] MEDS: ATORVASTATIN 20 MG TAB PO SCH (20:32)
[2018-11-27] VITALS: PULSE 46
[2018-11-27 00:19] VITALS: BP 95/62; PULSE 49; RESP 16
[2018-11-27 03:50] VITALS: BP 113/67; PULSE 48; RESP 16
[2018-11-27 04:00] VITALS: PULSE 47
[2018-11-27] MEDS: PANTOPRAZOLE (EC) 40 MG TAB PO SCH (06:26)
[2018-11-27 07:36] VITALS: BP 108/72; PULSE 59; RESP 20
[2018-11-27 08:01] VITALS: PULSE 60
[2018-11-27] MEDS: GEMFIBROZIL 600 MG TAB PO SCH (08:04)
[2018-11-27] MEDS: ASPIRIN (EC) 81 MG TAB PO SCH (08:04)
[2018-11-27] MEDS: CHOLECALCIFEROL 1,000 UNIT TAB PO SCH (08:04)
[2018-11-27] MEDS: HEPARIN 5,000 UNIT/1 ML VIAL SC SCH (08:12)
--- NOTE | 2018-11-27 09:13 | CONS ---
Consult Date/Type/Reason Admit Date/Time Nov 25, 2018 at 17:46 Initial Consult Date 11/24/18 Type of Consultation: CV Requesting Provider: YANET COLLADO NP Date/Time of Note DATE: 11/27/18 TIME: 09:12 Subjective Cardiology follow-up progress note Subjective: Case discussed with the staff telemetry was reviewed patient remains normal sinus rhythm Patient with NO MORE CHEST PAIN Patient with no left hand numbness or pain Objective: General: no acute distress HEENT: NC/AT. pupils are equal. round. NECK: NO JVD. no stridor. CV: RRR. systolic murmur; no gallop or rubs. PULM: no wheezing or rhonchi. GI: SOFT, NT, ND, no rebound or guarding Extremity: trace B/L LE edema. no clubbing. neuro: awake and alert, OX3. Psych: calm and pleasant rectal: deferred : normal Vascular: Left radial pulses intact Echocardiogram was personally reviewed which shows: Normal left ventricular systolic function. Normal left ventricular cavity size. Sigmoid septum. Ejection fraction is visually estimated at 65 %. Tissue Doppler/Mitral Doppler indices are consistent with impaired relaxation (Stage I diastolic dysfunction). Mild mitral leaflet calcification. Mild mitral annular calcification. Trace mitral regurgitation. No significant aortic stenosis or insufficiency. Aortic cusps appear mildly calcified. Normal appearance of the tricuspid valve. Estimated peak PA systolic pressure 29 mmHg. There is mild tricuspid regurgitation. Lexiscan stress test done 11/25/2018 shows 1. Positive myocardial perfusion scan. 2. Subtle mild reversible ischemia along the inferolateral wall. 3. Normal wall motion with normal ejection fraction of 77%. Objective Vitals Vital Signs Date Temp Pulse Resp B/P (MAP) Pulse Ox O2 O2 Flow FiO2 Time Delivery Rate 11/27/18 60 08:01 11/27/18 98.0 20 108/72 98 Room Air 07:36 (84) Intake and Output 11/26/18 11/26/18 11/27/18 1515:00 23:00 07:00 IntakeIntake Total 0 ml 1450 ml OutputOutput Total 650 ml BalanceBalance 0 ml 800 ml Results/Medications Result Diagram: 11/27/18 0646 11/27/18 0646 Results 24 hrs Laboratory Tests Test 11/27/18 06:46 White Blood Count 8.1 # Red Blood Count 4.84 Hemoglobin 14.6 Hematocrit 45.2 Mean Corpuscular Volume 93.4 Mean Corpuscular Hemoglobin 30.2 Mean Corpuscular Hemoglobin Concent 32.3 Red Cell Distribution Width 13.2 Platelet Count 224 Mean Platelet Volume 11.2 H Immature Granulocytes % 0.200 Neutrophils % 37.9 L Lymphocytes % 46.1 Monocytes % 12.7 H Eosinophils % 2.6 Basophils % 0.5 Nucleated Red Blood Cells % 0.0 Immature Granulocytes # 0.020 Neutrophils # 3.1 Lymphocytes # 3.8 H Monocytes # 1.0 H Eosinophils # 0.2 Basophils # 0.0 Nucleated Red Blood Cells # 0.0 Sodium Level 143 Potassium Level 4.1 Chloride Level 110 Carbon Dioxide Level 23 Anion Gap 10 Blood Urea Nitrogen 19 Creatinine 1.05 Est Glomerular Filtrat Rate mL/min > 60 Glucose Level 86 Calcium Level 10.0 Magnesium Level 2.0 Home Meds Reported Medications Aspirin* (Aspirin* EC) 81 Mg Tablet.dr, 81 MG PO DAILY, TAB 11/24/18 Cholecalciferol* (Vitamin D3*) 1,000 Unit Tablet, 1000 UNIT PO DAILY, TAB 11/24/18 Atorvastatin* (Atorvastatin*) 40 Mg Tablet, 20 MG PO QHS, #30 TAB-CAP 11/24/18 Gemfibrozil* (Lopid*) 600 Mg Tablet, 600 MG PO BID, TAB 11/24/18 Omeprazole* (Omeprazole*) 20 Mg Capsule.dr, 20 MG PO DAILY, #30 CAP 11/24/18 Propranolol Hcl* (Propranolol Hcl*) 10 Mg Tablet, 10 MG PO DAILY, TAB 11/24/18 Captopril* (Captopril*) 25 Mg Tablet, 25 MG PO DAILY, #60 TAB 11/24/18 Discontinued Reported Medications [Asa 81] No Conflict Check 06/26/18 Medications Current Medications IV Flush (NS 3 ml) 3 ml PER PROTOCOL IV ; Start 11/24/18 at 05:00 Nitroglycerin (Nitroglycerin (Sl Tab) 0.4 Mg) 1 tab Q5M PRN SL .CHEST PAIN Last administered on 11/26/18at 02:07; Admin Dose 1 TAB; Start 11/24/18 at 05:00 Acetaminophen (Tylenol Tab) 650 mg Q6H PRN PO .PAIN 1-3 OR TEMP Last administered on 11/26/18at 19:45; Admin Dose 650 MG; Start 11/24/18 at 05:00 Docusate Sodium (Colace) 100 mg Q12H PRN PO .CONSTIPATION; Start 11/24/18 at 05:00 Bisacodyl (Dulcolax) 5 mg DAILY PRN PO .CONSTIPATION; Start 11/24/18 at 05:00 Aspirin (Halfprin) 81 mg DAILY PO Last administered on 11/27/18 08:04; Admin Dose 81 MG; Start 11/24/18 at 09:00 Atorvastatin Calcium (Lipitor) 20 mg DAILY@21 PO Last administered on 11/26/18 20:32; Admin Dose 20 MG; Start 11/24/18 at 21:00 Cholecalciferol (Vitamin D) 1,000 unit DAILY PO Last administered on 11/27/18 08:04; Admin Dose 1,000 UNIT; Start 11/24/18 at 09:00 Gemfibrozil (Lopid) 600 mg BID PO Last administered on 11/27/18 08:04; Admin Dose 600 MG; Start 11/24/18 at 09:00 Propranolol HCl (Inderal) 10 mg DAILY PO ; Start 11/24/18 at 09:00; Status Hold Pantoprazole (Protonix Tab) 40 mg DAILY@06 PO Last administered on 11/27/18 06:26; Admin Dose 40 MG; Start 11/24/18 at 06:00 Captopril (Capoten) 12.5 mg BID PO Last administered on 11/27/18 08:04; Admin Dose 12.5 MG; Start 11/24/18 at 21:00 Heparin Sodium (Porcine) (Heparin (5000 Units/1ml)) 5,000 unit BID SC Last administered on 11/27/18 08:12; Admin Dose 5,000 UNIT; Start 11/25/18 at 21:00 Miscellaneous Information (* Miscellaneous Pharmacy Order) HOLD all METFORMIN ... ONCE XX ; Start 11/26/18 at 18:30; Stop 11/28/18 at 18:29 Assessment/Plan Hospital Course (Demo Recall) Chest pain: With mildly abnormal stress test: Coronary angiography did not show any significant obstructive coronary artery disease Hypertension mild stable now Smoker History of alcohol use Mildly abnormal troponin and recurrent chest pain Recommendations Continue with aspirin Very low-dose captopril not on betablocker due to bradycardia Okay to discharge from cardiac standpoint Thank you for his referral. We will continue to follow with you JIE GILBERT MD [facility] JIE GILBERT MD Nov 27, 2018 09:13
--- NOTE | 2018-11-27 09:50 | PDOCDIS ---
Discharge Instructions CONDITION [id number] Patient Condition: Afvow7i Stable HOME CARE INSTRUCTIONS: [id number] Diet Instructions: [id number] Low Fat /Cholesterol FOLLOW UP/APPOINTMENTS Follow-up Plan Follow-up with primary care physician in 1 week YANET CLOLADO NP Nov 27, 2018 09:50
[2018-11-27] MEDS ORDERED: CAPT12.52 PO (09:51)
--- NOTE | 2018-11-27 09:57 | DS ---
Date/Time of Note Date/Time of Note DATE: 11/27/18 TIME: 09:54 Discharge Summary Admission/Discharge Info Admit Date/Time Nov 25, 2018 at 17:46 Discharge Date/Time Discharge Diagnosis 1. Chest pain, likely musculoskeletal. Resolved. Negative cardiac cath. 2. Abnormal stress test, likely false positive per cardiology. 3. Essential hypertension. 4. Dyslipidemia 5. Sinus Bradycardia, asymptomatic 6. Tobacco use/marijuana use/alcohol use. Patient Condition: Stable Consults ,cards Procedures 11/25/2018. 2D echocardiogram. Conclusions: Normal left ventricular systolic function. Normal left ventricular cavity size. Sigmoid septum. Ejection fraction is visually estimated at 65 %. Tissue Doppler/Mitral Doppler indices are consistent with impaired relaxation (Stage I diastolic dysfunction). Mild mitral leaflet calcification. Mild mitral annular calcification. Trace mitral regurgitation. No significant aortic stenosis or insufficiency. Aortic cusps appear mildly calcified. Normal appearance of the tricuspid valve. Estimated peak PA systolic pressure 29 mmHg. There is mild tricuspid regurgitation. Electronically Signed By: Vincenzo Sanchez 2018-11-24 14:37:48 PDT 2018. Procedure Description Various Exceptionalities Teacher: Vincenzo Sanchez MD Indication: 65-year-old gentleman with recurrent chest pain and abnormal stress test Procure performed: #1 left heart catheterization and selective right and left coronary angiogram using left radial approach. #2 ultrasound guided placement of radial arterial sheath placement 3. Moderate sedation for more than 30 minutes Findings: 1. Left main: is long and normal and birfurcates to LAD & LCX. 2. 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 Diagonal is large with about 30% focal st enosis 3. Left circumflex artery: is nondominant. it has no significant stenosis 4. RCA: is large and dominant. it has 5. LV 98/1. Aortic pressure by pull back 86/40 Hx of Present Illness This is a 68-year-old Farsi speaking male with a history of hypertension, hyperlipidemia, initially presented to outside hospital where he presented with sudden onset of left-sided chest pain with radiation to left arm started overnight. Patient also had associated cold sweats, and mild shortness of breath. His symptoms were not related to any activities or rest. There was no alleviating or exacerbating factors. Patient denied similar episodes in the past. He never had any stress test or other cardiac intervention. Patient also does smoke 2 cigarettes every night, drink alcohol 3-4 times a week and smoke marijuana daily. Outside hospital initial labs unremarkable with a normal troponin. Twelve-lead EKG showed sinus rhythm with possible left anterior fascicular block. There was no acute ST or T wave changes. Patient was transferred to [facility] due to insurance capitation. Hospital Course 68-year-old Farsi speaking male with a history of hypertension, hyperlipidemia, presented to outside hospital with sudden onset of left-sided chest pain with radiation to left, associated with cold sweats and mild shortness of breath. Patient had negative serial troponin and his EKG was negative for acute ST or T wave changes. Patient's echocardiogram showed preserved ejection fraction. He underwent a Lexiscan stress test which was abnormal, further led to a cardiac catheterization on 11/26/2018. Patient's heart cath was normal and did not show any significant obstructive coronary artery disease. At this time, he does not need any further inpatient workup. As per cardiology, most likely chest pain is noncardiac and abnormal stress test is likely false positive. Patient did not have any further chest pain. His blood pressure remained stable. Due to bradycardia which is chronic and asymptomatic, he is not a candidate for any beta-blockers. As such, he was continued on low-dose captopril for blood pressure management. He was also continued on aspirin prophylaxis. Patient's cholesterol panel within normal level as well and his A1c also normal. Patient is now medically stable for discharge. He is very eager to be discharged home. No further inpatient workup indicated and patient to follow-up with his primary care physician in 1 week. Approximately 60 m spent on coordinating the discharge on this patient. Patient was seen in collaboration with Dr. Bran. Home Meds Active Scripts Captopril* (Captopril*) 12.5 Mg Tablet, 12.5 MG PO BID, #60 TAB Prov:YANET COLLADO V. SOCIAL MEDIA EDITOR 11/27/18 Reported Medications Aspirin* (Aspirin* EC) 81 Mg Tablet., 81 MG PO DAILY, TAB 11/24/18 Cholecalciferol* (Vitamin D3*) 1,000 Unit Tablet, 1000 UNIT PO DAILY, TAB 11/24/18 Atorvastatin* (Atorvastatin*) 40 Mg Tablet, 20 MG PO QHS, #30 TAB-CAP 11/24/18 Gemfibrozil* (Lopid*) 600 Mg Tablet, 600 MG PO BID, TAB 11/24/18 Omeprazole* (Omeprazole*) 20 Mg Capsule.dr, 20 MG PO DAILY, #30 CAP 11/24/18 Propranolol Hcl* (Propranolol Hcl*) 10 Mg Tablet, 10 MG PO DAILY, TAB 11/24/18 Captopril* (Captopril*) 25 Mg Tablet, 25 MG PO DAILY, #60 TAB 11/24/18 Discontinued Reported Medications [Asa 81] No Conflict Check 06/26/18 Follow-up Plan Follow-up with primary care physician in 1 week Primary Care Provider Not On Staff Doctor Pending Labs Laboratory Tests Test 11/27/18 06:46 White Blood Count 8.1 10^3/ul (4.8-10.8) Red Blood Count 4.84 10^6/ul (4.70-6.10) Hemoglobin 14.6 g/dl (14.0-18.0) Hematocrit 45.2 % (42.0-52.0) Mean Corpuscular Volume 93.4 fl (82.0-101.0) Mean Corpuscular Hemoglobin 30.2 pg (29.0-33.0) Mean Corpuscular Hemoglobin Concent 32.3 g/dl (32.0-37.0) Red Cell Distribution Width 13.2 % (11.5-14.5) Platelet Count 224 10^3/UL (140-415) Mean Platelet Volume 11.2 fl (7.4-10.4) Immature Granulocytes % 0.200 % (0.001-0.429) Neutrophils % 37.9 % (39.0-77.0) Lymphocytes % 46.1 % (15.0-51.0) Monocytes % 12.7 % (0.0-11.0) Eosinophils % 2.6 % (0.0-7.0) Basophils % 0.5 % (0.0-2.0) Nucleated Red Blood Cells % 0.0 /100WBC (0.0-0.0) Immature Granulocytes # 0.020 10^3/ul (0.0-0.031) Neutrophils # 3.1 10^3/ul (1.6-7.5) Lymphocytes # 3.8 10^3/ul (0.8-2.9) Monocytes # 1.0 10^3/ul (0.3-0.9) Eosinophils # 0.2 10^3/ul (0.0-0.5) Basophils # 0.0 10^3/ul (0.0-0.1) Nucleated Red Blood Cells # 0.0 10^3/ul (0.0-0.0) Sodium Level 143 mmol/L (135-144) Potassium Level 4.1 mmol/L (3.5-5.1) Chloride Level 110 mmol/L (97-110) Carbon Dioxide Level 23 mmol/L (21-31) Anion Gap 10 (5-13) Blood Urea Nitrogen 19 mg/dl (7-20) Creatinine 1.05 mg/dl (0.61-1.24) Est Glomerular Filtrat Rate mL/min > 60 mL/min (>60) Glucose Level 86 mg/dl (70-220) Calcium Level 10.0 mg/dl (8.4-10.2) Magnesium Level 2.0 mg/dl (1.7-2.5) YANET COLLADO NP Nov 27, 2018 09:57
== END 2018-11-27 11:44 | disposition home or self-care (01) | DRG 287 ==
LOC: TEL 03:54 → INTOOBSV 03:54 → OBSVTOIN 11-25 17:46
PROVIDERS: ADMIT Family Medicine; ATTEND Family Medicine
PROC: B211YZZ Fluoroscopy of Multiple Coronary Arteries using Other Contrast (ICD-10-PCS; 2018-11-26)
PROC: B215YZZ Fluoroscopy of Left Heart using Other Contrast (ICD-10-PCS; 2018-11-26)
PROC: 4A023N7 Measurement of Cardiac Sampling and Pressure, Left Heart, Percutaneous Approach (ICD-10-PCS; principal; 2018-11-26 17:00)
DX: R07.89 Other chest pain (principal); I10 Essential (primary) hypertension; E78.5 Hyperlipidemia, unspecified; R00.1 Bradycardia, unspecified; F17.200 Nicotine dependence, unspecified, uncomplicated; F12.20 Cannabis dependence, uncomplicated; F10.10 Alcohol abuse, uncomplicated; Z79.82 Long term (current) use of aspirin
CPT/HCPCS: 71045; 78452; 80048; 80053; 80061; 82550; 82553; 83036; 83735; 84443; 84484; 85025; 93005; 93017; 93306; 93458; 99217; G0378; A9500; A9505; C1769; C1887; J1644; J2250; J2785; J3010; J7030; J7040; Q9967

== ENCOUNTER 2019-02-10 05:52 | Emergency (ER) | payer OTHER ==
[~2019-02-10] VITALS: Wt 86.6 kg
[~2019-02-10 05:52] MED LIST: ASPI-817 PO; ATOR40TA68 PO; CAPT12.52 PO; CHOL100062 PO; GEMF600T PO; OMEP20CA16 PO
[2019-02-10] MEDS ORDERED: NICARDipine HCL 30 MG CAPSULE PO ONE (07:30)
[2019-02-10 07:37] VITALS: BP 137/93; PULSE 57; RESP 18
--- NOTE | 2019-02-10 07:42 | ERD ---
ER Documentation Chief Complaint Chief Complaint states htn at home, c/o dizziness/nausea. denies pain HPI Patient is a 68-year-old male with hypertension who presents with high blood pressure. His blood pressure was elevated at home this morning around 3 AM. He said that it was 200/130. He took aspirin, captopril, and hydrochlorothiazide. He feels cold hands and feet bilaterally. He has no chest pain or other symptoms. Upon review of old medical records the patient one previous visit to the ER in November 2018. ROS All systems reviewed and are negative except as per history of present illness. Medications Home Meds Active Scripts Captopril* (Captopril*) 12.5 Mg Tablet, 12.5 MG PO BID, #60 TAB Prov:YANET COLLADO V. MEDIC TECHNICIAN 11/27/18 Reported Medications Aspirin* (Aspirin* EC) 81 Mg Tablet.dr, 81 MG PO DAILY, TAB 11/24/18 Cholecalciferol* (Vitamin D3*) 1,000 Unit Tablet, 1000 UNIT PO DAILY, TAB 11/24/18 Atorvastatin* (Atorvastatin*) 40 Mg Tablet, 20 MG PO QHS, #30 TAB-CAP 11/24/18 Gemfibrozil* (Lopid*) 600 Mg Tablet, 600 MG PO BID, TAB 11/24/18 Omeprazole* (Omeprazole*) 20 Mg Capsule.dr, 20 MG PO DAILY, #30 CAP 11/24/18 Allergies Allergies: Coded Allergies: No Known Allergy (Unverified , 11/24/18) PMhx/Soc History of Surgery: No Anesthesia Reaction: No Hx Neurological Disorder: No Hx Respiratory Disorders: No Hx Cardiac Disorders: Yes (HTN, HLD , ACS) Hx Psychiatric Problems: No Hx Miscellaneous Medical Probl: Yes (chronic back pain) Hx Alcohol Use: No Hx Substance Use: No Hx Tobacco Use: No FmHx Family History: No diabetes Physical Exam Vitals Vital Signs Date Temp Pulse Resp B/P (MAP) Pulse Ox O2 O2 Flow FiO2 Time Delivery Rate 02/10/19 57 18 137/93 99 Room Air 07:37 (108) 02/10/19 97.0 79 18 166/106 100 05:55 (126) Physical Exam Const: No acute distress Head: Atraumatic Eyes: Normal Conjunctiva ENT: Normal External Ears, Nose and Mouth. Neck: Full range of motion. No meningismus. Resp: Clear to auscultation bilaterally Cardio: Regular rate and rhythm, no murmurs Abd: Soft, non tender, non distended. Normal bowel sounds Skin: No petechiae or rashes Back: No midline or flank tenderness Ext: No cyanosis, or edema Neur: Awake and alert, cranial nerves II through XII are intact, strength is 5 out of 5 in all 4 extremities, no slurred speech, normal gait Psych: Normal Mood and Affect Results 24 hrs Current Medications Medications Dose Sig/Yanna Start Time Status Last (Trade) Ordered Route PRN Stop Time Admin Dose Reason Admin Nicardipine 30 mg ONCE ONCE 02/10/19 DC HCl PO 07:30 (Cardene) 02/10/19 07:31 Procedures/MDM EKG read by me: Rate/Rhythm: Sinus bradycardia at a rate of 54 Intervals: Normal Impression: Bradycardia without ST elevations or depressions Patient is a 68-year-old male who presents with elevated blood pressure. His repeat blood pressure in the emergency department was 130 systolic and therefore further blood pressure medication was held. The patient had already taken his blood pressure medicines this morning at 3 AM. His EKG shows sinus bradycardia but no signs of ischemia. At this point I believe outpatient management is appropriate. I doubt stroke or intracranial hemorrhage. I believe the risk of doing a CT scan outweigh the benefits. The patient can return for any worsening symptoms. Departure Diagnosis: Primary Impression: Hypertension Hypertension type: essential hypertension Qualified Codes: I10 - Essential (primary) hypertension Condition: Fair Patient Instructions: High Blood Pressure (Hypertension) Referrals: Your doctor Additional Instructions: Call your primary care doctor TOMORROW for an appointment during the next 1-2 days.See the doctor sooner or return here if your condition worsens before your appointment time. DANIEL CM MD February 10, 2019 07:42
== END 2019-02-10 08:00 | disposition home or self-care (01) ==
LOC: E/R 05:52
DX: I10 Essential (primary) hypertension (principal); Z79.82 Long term (current) use of aspirin
CPT/HCPCS: 93005; Z7502; Z7610

== ENCOUNTER 2019-04-24 19:26 | Observation (INO) | payer OTHER ==
[~2019-04-24] VITALS: Ht 182.9 cm; Wt 83.3 kg
[~2019-04-24 19:26] MED LIST changes: +CARV3.1260 PO; +CHOL5000 PO; +HYDR-842 PO; +MULTI PO
[2019-04-24] MEDS ORDERED: NITROGLYCERIN 2% 1 GM OINT PKT TD STA (19:29)
[2019-04-24] MEDS ORDERED: NITROGLYCERIN (SL) 0.4 MG TAB SL PRN ×2 (19:30→21:00)
[2019-04-24] MEDS ORDERED: BISACODYL (EC) 5 MG TAB PO PRN (21:00)
[2019-04-24] MEDS ORDERED: ONDANSETRON 4 MG INJ IV PRN ×2 (21:00)
[2019-04-24] MEDS ORDERED: ACETAMINOPHEN 325 MG TAB PO PRN ×2 (21:00)
[2019-04-24] MEDS ORDERED: morphine 2 MG INJ IV PRN (21:00)
[2019-04-24] MEDS ORDERED: DOCUSATE SODIUM 100 MG CAP PO PRN (21:00)
[2019-04-24] MEDS ORDERED: NACL 0.9% 3 ML SYG IV SCH (21:00)
--- NOTE | 2019-04-24 23:01 | ERD ---
ER Documentation Chief Complaint Chief Complaint R102 FROM HOME. NONRADIATING CHEST PAIN X 1 HR. PAIN (01/23) HPI Patient is a 69-year-old male who presents with chest pain. 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 The patient was brought in by ambulance. He has heaviness to the left chest which he describes as a "pressure". He took nitroglycerin and 162 mg of aspirin at home. He was given aspirin 160 mg and nitro by paramedics as well. He said the symptoms started 3 hours ago and have been constant. He does have a primary doctor. ROS All systems reviewed and are negative except as per history of present illness. Medications Home Meds Active Scripts Captopril* (Captopril*) 12.5 Mg Tablet, 12.5 MG PO BID, #60 TAB Prov:YANET COLLADO V. SUPERVISOR MAILS 11/27/18 Reported Medications Aspirin* (Aspirin* EC) 81 Mg Tablet.dr, 81 MG PO DAILY, TAB 11/24/18 Cholecalciferol* (Vitamin D3*) 1,000 Unit Tablet, 1000 UNIT PO DAILY, TAB 11/24/18 Atorvastatin* (Atorvastatin*) 40 Mg Tablet, 20 MG PO QHS, #30 TAB-CAP 11/24/18 Gemfibrozil* (Lopid*) 600 Mg Tablet, 600 MG PO BID, TAB 11/24/18 Omeprazole* (Omeprazole*) 20 Mg Capsule.dr, 20 MG PO DAILY, #30 CAP 11/24/18 Allergies Allergies: Coded Allergies: No Known Allergy (Unverified , 11/24/18) PMhx/Soc Medical and Surgical Hx: pt denies Surgical Hx History of Surgery: No Anesthesia Reaction: No Hx Neurological Disorder: No Hx Respiratory Disorders: No Hx Cardiac Disorders: Yes (HTN, HLD , ACS) Hx Psychiatric Problems: No Hx Miscellaneous Medical Probl: Yes (chronic back pain) Hx Alcohol Use: No Hx Substance Use: No Hx Tobacco Use: No Smoking Status: Never smoker FmHx Family History: coronary disease Physical Exam Vitals Vital Signs Date Temp Pulse Resp B/P (MAP) Pulse Ox O2 O2 Flow FiO2 Time Delivery Rate 04/24/19 46 12 111/69 96 Room Air 22:51 (83) 04/24/19 52 17 111/69 98 Room Air 22:30 (83) 04/24/19 52 14 117/70 99 Room Air 21:00 (86) 04/24/19 98.3 61 20 141/80 100 19:28 (100) Physical Exam Const: No acute distress Head: Atraumatic Eyes: Normal Conjunctiva ENT: Normal External Ears, Nose and Mouth. Neck: Full range of motion. No meningismus. Resp: Clear to auscultation bilaterally Cardio: Regular rate and rhythm, no murmurs Abd: Soft, non tender, non distended. Normal bowel sounds Skin: No petechiae or rashes Back: No midline or flank tenderness Ext: No cyanosis, or edema Neur: Awake and alert Psych: Normal Mood and Affect Result Diagram: 04/24/19192904/24/191929 Results 24 hrs Laboratory Tests Test 04/24/19 19:30 White Blood Count 7.1 10^3/ul Red Blood Count 4.57 10^6/ul Hemoglobin 13.9 g/dl Hematocrit 42.0 % Mean Corpuscular Volume 91.9 fl Mean Corpuscular Hemoglobin 30.4 pg Mean Corpuscular Hemoglobin Concent 33.1 g/dl Red Cell Distribution Width 13.2 % Platelet Count 222 10^3/UL Mean Platelet Volume 11.2 fl Immature Granulocytes % 0.100 % Neutrophils % 41.6 % Lymphocytes % 41.3 % Monocytes % 12.7 % Eosinophils % 3.7 % Basophils % 0.6 % Nucleated Red Blood Cells % 0.0 /100WBC Immature Granulocytes # 0.010 10^3/ul Neutrophils # 2.9 10^3/ul Lymphocytes # 2.9 10^3/ul Monocytes # 0.9 10^3/ul Eosinophils # 0.3 10^3/ul Basophils # 0.0 10^3/ul Nucleated Red Blood Cells # 0.0 10^3/ul Sodium Level 140 mmol/L Potassium Level 3.9 mmol/L Chloride Level 107 mmol/L Carbon Dioxide Level 25 mmol/L Anion Gap 8 Blood Urea Nitrogen 19 mg/dl Creatinine 1.07 mg/dl Est Glomerular Filtrat Rate mL/min > 60 mL/min Glucose Level 129 mg/dl Calcium Level 9.9 mg/dl Troponin I < 0.012 ng/ml Current Medications Medications Dose Sig/Yanna Start Time Status Last (Trade) Ordered Route PRN Stop Time Admin Dose Reason Admin 1 inch ONCE STAT 04/24/19 DC 04/24/19 Nitroglycerin TD 19:29 04/24/19 19:40 19:30 (Nitroglyceri n 2% Oint) 1 tab Q5M UP TO 3 04/24/19 04/24/19 Nitroglycerin DOSES PRN 19:30 19:39 SL .CHEST (Nitroglyceri PAIN n (Sl Tab) 0.4 Mg) Ondansetron 4 mg ER BRIDGE 04/24/19 HCl (Zofran PRN IV 21:00 Inj) NAUSEA/VOMITI 04/25/19 20:59 NG 650 mg ER BRIDGE 04/24/19 Acetaminophen PRN PO 21:00 (Tylenol .MILD PAIN 04/25/19 20:59 Tab) 1-3 OR TEMP IV Flush 3 ml PER 04/24/19 (NS 3 ml) PROTOCOL IV 21:00 Ondansetron 4 mg Q6H PRN 04/24/19 HCl (Zofran IV 21:00 Inj) NAUSEA/VOMITI NG 1 tab Q5M PRN 04/24/19 Nitroglycerin SL .CHEST 21:00 PAIN (Nitroglyceri n (Sl Tab) 0.4 Mg) 650 mg Q6H PRN 04/24/19 Acetaminophen PO .PAIN 1-3 21:00 (Tylenol OR TEMP Tab) Morphine 2 mg Q4H PRN 04/24/19 Sulfate IV .PAIN 21:00 (morphine) 7-10 Docusate 100 mg Q12H PRN 04/24/19 Sodium PO 21:00 (Colace) .CONSTIPATION Bisacodyl 5 mg DAILY PRN 04/24/19 (Dulcolax) PO 21:00 .CONSTIPATION Procedures/MDM EKG read by me: Rate/Rhythm: Regular rate and rhythm at a rate of 62 Intervals: Normal Impression: No evidence of ischemia or arrhythmia Chest x-ray read by radiology. Patient is a 69-year-old male who presents with chest pain. I am concerned about acute coronary syndrome. I doubt pneumonia, pneumothorax, pulmonary embolism, or aortic dissection. The patient will be admitted to the care of Dr. Matute to a telemetry bed. The patient understands the plan and is okay for admission at this time. Departure Diagnosis: Primary Impression: Chest pain Chest pain type: unspecified Qualified Codes: R07.9 - Chest pain, unspecified Condition: DANIEL Coto MD Apr 24, 2019 23:01
--- NOTE | 2019-04-24 23:28 | HP ---
Date/Time of Note Date/Time of Note DATE: 04/24/19 TIME: 23:28 Assessment/Plan VTE Prophylaxis SCD applied (from Nsg): Yes Pharmacological prophylaxis: NA/contraindicated Pharm contraindication: low risk/ambulating Lines/Catheters IV Catheter Type (from Nrsg): Peripheral IV Assessment/Plan Hospital Course This is a 69-year-old male being admitted to the telemetry floor for observation for: 1.Exertional Chest pain, rule out acute coronary syndrome versus musculoskeletal..: EKG appears nonischemic. First troponin was negative. Will trend cardiac enzymes. He had an echocardiogram in November 2018 which showed an ejection fraction of 65% with stage II diastolic dysfunction, he also had a left heart catheterization that did not show any significant signs of obstruction. He does have some minor tenderness to palpation over the left chest wall. PRN nitro/morphine. Will trend troponins. If his troponins remain negative and given the findings of his left heart catheterization in November 2018 I do feel we likely could safely discharge the patient have him follow-up with his primary care doctor as an outpatient. We will check lipid panel, TSH, hemoglobin A1c 2. Essential hypertension: Continue catherine. 3. Dyslipidemia: Continue statin, Lopid 4. Sinus Bradycardia, asymptomatic: This is known and was started on carevedilol as an outpatient. Will monitor closely. Hold off on his carvedilol. PRN atropine if heart rate goes below 30. 5. Tobacco use/marijuana use/alcohol use: Cessation advised. 6. DVT GI prophylaxis: SCDs, no GI prophylaxis indicated Further treatment strategy will be implemented as per the clinical course Result Diagram: 04/24/19192904/24/190 Results 24hrs Laboratory Tests Test 04/24/19 19:30 White Blood Count 7.1 Red Blood Count 4.57 L Hemoglobin 13.9 L Hematocrit 42.0 Mean Corpuscular Volume 91.9 Mean Corpuscular Hemoglobin 30.4 Mean Corpuscular Hemoglobin Concent 33.1 Red Cell Distribution Width 13.2 Platelet Count 222 Mean Platelet Volume 11.2 H Immature Granulocytes % 0.100 Neutrophils % 41.6 Lymphocytes % 41.3 Monocytes % 12.7 H Eosinophils % 3.7 Basophils % 0.6 Nucleated Red Blood Cells % 0.0 Immature Granulocytes # 0.010 Neutrophils # 2.9 Lymphocytes # 2.9 Monocytes # 0.9 Eosinophils # 0.3 Basophils # 0.0 Nucleated Red Blood Cells # 0.0 Sodium Level 140 Potassium Level 3.9 Chloride Level 107 Carbon Dioxide Level 25 Anion Gap 8 Blood Urea Nitrogen 19 Creatinine 1.07 Est Glomerular Filtrat Rate mL/min > 60 Glucose Level 129 Calcium Level 9.9 Troponin I < 0.012 HPI/ROS Admit Date/Time Admit Date/Time Hx of Present Illness Chief complaint: Left-sided chest pain This is a 69-year-old male with a past medical history of hypertension, hyperlipidemia and bradycardia who presented to the emergency department complaints of left-sided chest pain. Patient reports that he started expressing left-sided chest pain and pressure while he was walking. He did take nitroglycerin and aspirin at home prior to arrival and he also did receive aspirin and nitro by the paramedics. He reports that the symptoms that started 3 hours prior and they remain constant. Patient reported that he also had some radiation to the left side of his arm and to his back. He denies any nausea vomiting or diarrhea. Denies any shortness of breath. Denies any diaphoresis. On carvedilol which was resumed by his outpatient doc. Of note patient did have a left heart catheterization performed at [facility] in November 2018 which did not show any significant obstruction in the coronaries as per the product marketing analyst. Allergies: NKDA Medications: See MARIA FERNANDA QUIROS Const: As per HPI Eyes : No pain discharge or redness or change in visual acuity ENT: No pain, sore throat, congestion, congestion, dysphagia or discharge Respiratory: No shortness of breath, cough, sputum, wheezing, or pleuritic pain Cardiovascular: As per HPI GI : no change in appetite, abdominal pain, nausea, vomiting, diarrhea, constipation, or change in the color his stool Genitourinary: No dysuria, hematuria, flank pain , discharge or CVA tenderness Musculoskeletal: No joint pain, back pain, neck pain, restricted range of motion in neck or joints Skin: No rash, bruising or hives Neuro: No headache, dizziness, syncope, seizure, focal weakness Endocrine: No polyuria, polydipsia, temperature intolerance Psych: No hallucination, depression, anxiety or suicidal ideation PMH/Family/Social Past Medical History HTN Bradycardia Dyslpidemia Medications Current Medications Nitroglycerin (Nitroglycerin (Sl Tab) 0.4 Mg) 1 tab Q5M UP TO 3 DOSES PRN SL .CHEST PAIN Last administered on 04/24/19at 19:39; Admin Dose 1 TAB; Start 04/24/19 at 19:30 Ondansetron HCl (Zofran Inj) 4 mg ER BRIDGE PRN IV NAUSEA/VOMITING; Start 04/24/19 at 21:00; Stop 04/25/19 at 20:59 Acetaminophen (Tylenol Tab) 650 mg ER BRIDGE PRN PO .MILD PAIN 1-3 OR TEMP; Start 04/24/19 at 21:00; Stop 04/25/19 at 20:59 IV Flush (NS 3 ml) 3 ml PER PROTOCOL IV ; Start 04/24/19 at 21:00 Ondansetron HCl (Zofran Inj) 4 mg Q6H PRN IV NAUSEA/VOMITING; Start 04/24/19 at 21:00 Nitroglycerin (Nitroglycerin (Sl Tab) 0.4 Mg) 1 tab Q5M PRN SL .CHEST PAIN; Start 04/24/19 at 21:00 Acetaminophen (Tylenol Tab) 650 mg Q6H PRN PO .PAIN 1-3 OR TEMP; Start 04/24/19 at 21:00 Morphine Sulfate (morphine) 2 mg Q4H PRN IV .PAIN 7-10; Start 04/24/19 at 21:00 Docusate Sodium (Colace) 100 mg Q12H PRN PO .CONSTIPATION; Start 04/24/19 at 21:00 Bisacodyl (Dulcolax) 5 mg DAILY PRN PO .CONSTIPATION; Start 04/24/19 at 21:00 Coded Allergies: No Known Allergy (Unverified , 04/25/19) Past Surgical History Diagnostic Left Heart Cath 11/2018 screening colonoscopy Social History Alcohol Use: occasionally Smoking Status: Current every day smoker (1 cigarette a day) Drug Use: none, marijuana Exam/Review of Systems Vital Signs Vitals Vital Signs Date Temp Pulse Resp B/P (MAP) Pulse Ox O2 O2 Flow FiO2 Time Delivery Rate 04/24/19 46 12 111/69 96 Room Air 22:51 (83) 04/24/19 98.3 19:28 Exam Exam General: Patient is a pleasant male currently lying in bed in no acute distress. Patient denies any current pain. HEENT: Atraumatic, normocephalic. The pupils are equal, round and reactive. Extraocular motor are intact Neck: Supple with full range of motion. No rigidity or meningismus Chest: Mild tenderness palpation over the left chest wall Lungs: Clear to auscultation bilaterally no crackles rales or wheezing Heart: Normal S1-S2, Regular rhythm and rate. No murmur, S3, or S4 Abdomen: Soft , nontender, nondistended , bowel sounds are present. No guarding no rebound tenderness , No masses or organomegaly. No costovertebral temporal angle mass Extremities: Normal to inspection, no edema no cyanosis Neurologic: Normal mental status, speech normal, cranial nerves II through XII are intact, motor and sensory are intact, Additional Comments PROCEDURE: XR Chest AP portable CLINICAL INDICATION: Chest pain TECHNIQUE: An AP portable radiograph of the chest was submitted. COMPARISON: 11/24/2018 FINDINGS: Support Hardware: None Cardiovascular: The cardiovascular silhouette appears unremarkable. Lung Irby: The lung irby and pleural spaces are clear. Pleural Spaces: No pneumothorax or pleural effusion is identified. Osseous Structures: The osseous structures appear intact. Soft Tissues: Unremarkable IMPRESSION: Stable portable chest without evidence of active cardiopulmonary disease. Physician Aaron Date Time Electronically viewed and signed by Physician Aaron on 04/24/2019 20:00 RH/ CC: DANIEL CM MD Previous cardiac reports: [id number] 11/25/2018. 2D echocardiogram. Conclusions: Normal left ventricular systolic function. Normal left ventricular cavity size. Sigmoid septum. Ejection fraction is visually estimated at 65 %. Tissue Doppler/Mitral Doppler indices are consistent with impaired relaxation (Stage I diastolic dysfunction). Mild mitral leaflet calcification. Mild mitral annular calcification. Trace mitral regurgitation. No significant aortic stenosis or insufficiency. Aortic cusps appear mildly calcified. Normal appearance of the tricuspid valve. Estimated peak PA systolic pressure 29 mmHg. There is mild tricuspid regurgitation. Electronically Signed By: Vincenzo Sanchez 2018-11-24 14:37:48 PDT 2018. Procedure Description Spray Painter Helper: Vincenzo Sanchez MD Indication: 65-year-old gentleman with recurrent chest pain and abnormal stress test Procure performed: #1 left heart catheterization and selective right and left coronary angiogram using left radial approach. #2 ultrasound guided placement of radial arterial sheath placement 3. Moderate sedation for more than 30 minutes Findings: 1. Left main: is long and normal and birfurcates to LAD & LCX. 2. 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 Diagonal is large with about 30% focal stenosis 3. Left circumflex artery: is nondominant. it has no significant stenosis 4. RCA: is large and dominant. it has 5. LV 98/1. Aortic pressure by pull back 86/40 LADARIUS BUENROSTRO Apr 24, 2019 23:28
[2019-04-25] MEDS ORDERED: KETOROLAC 15 MG INJ IV ONE (00:03)
[2019-04-25] MEDS ORDERED: GLUCOSE GEL 15 GRAM TUBE BUCCAL PRN (00:30)
[2019-04-25] MEDS ORDERED: PIPER-TAZO 3.375 GM IV (PMX) 100 ML IVPB SCH (00:30)
[2019-04-25] MEDS ORDERED: GLUCAGON 1 MG INJ IM PRN (00:30)
[2019-04-25] MEDS ORDERED: GLUCOSE GEL 15 GRAM TUBE PO PRN ×2 (00:30)
[2019-04-25] MEDS ORDERED: VANCOMYCIN IV PER PHARMACY XX SCH (00:30)
[2019-04-25] MEDS ORDERED: DEXTROSE 50% 50 ML SYRINGE IV PRN ×2 (00:30)
[2019-04-25 00:50] VITALS: BP 131/68; PULSE 42; RESP 18
[2019-04-25 01:10] VITALS: Ht 182.9 cm; Wt 83.3 kg
[2019-04-25] MEDS ORDERED: ACCU-CHEK XX SCH (02:00)
[2019-04-25 04:00] VITALS: BP 122/65; RESP 19
[2019-04-25] MEDS ORDERED: ATROPINE 1 MG/10 ML SYRINGE IV PRN (05:30)
[2019-04-25] MEDS ORDERED: PANTOPRAZOLE (EC) 40 MG TAB PO SCH (06:00)
[2019-04-25 07:36] VITALS: BP 105/67; PULSE 42; RESP 20
[2019-04-25] MEDS ORDERED: INSULIN ASPART [NOVOLOG] 3 ML PEN SC SCH (08:00)
[2019-04-25] MEDS ORDERED: NON-FORMULARY/PATIENT OWN MED (Omeprazole* 20 MG) PO SCH (09:00)
[2019-04-25] MEDS ORDERED: ASPIRIN (EC) 81 MG TAB PO SCH (09:00)
[2019-04-25] MEDS ORDERED: CHOLECALCIFEROL 1,000 UNIT TAB PO SCH (09:00)
[2019-04-25] MEDS ORDERED: GEMFIBROZIL 600 MG TAB PO SCH (09:00)
[2019-04-25 11:51] VITALS: BP 102/60; PULSE 45; RESP 45
--- NOTE | 2019-04-25 12:15 | PDOCDIS ---
Discharge Instructions DIAGNOSIS Discharge Diagnosis Chest pain, non-cardiac CONDITION [id number] Patient Condition: [id number] Good HOME CARE INSTRUCTIONS: [id number] Diet Instructions: [id number] Low Fat /Cholesterol ACTIVITY: [id number] Activity Restrictions: [id number] No Restrictions FOLLOW UP/APPOINTMENTS Follow-up Plan 1. Continue medications as prescribed. Stop taking carvedilol because your heart rate is low. See your pulmonary nurse practitioner before restarting it. 2. For pressure-like chest pain not responsive to nitroglycerin, return to the emergency room. KAELA BULLOCK MD Apr 25, 2019 12:15
[2019-04-25] MEDS ORDERED: POTASSIUM CHLORIDE (SR) 20 MEQ TAB PO STA (12:33)
--- NOTE | 2019-04-25 15:23 | DS ---
Date/Time of Note Date/Time of Note DATE: 04/25/19 TIME: 15:20 Discharge Summary Admission/Discharge Info Admit Date/Time Apr 24, 2019 at 20:41 Discharge Date/Time Apr 25, 2019 Discharge Diagnosis Chest pain, non-cardiac Patient Condition: Good Hx of Present Illness Chief complaint: Left-sided chest pain This is a 69-year-old male with a past medical history of hypertension, hyperlipidemia and bradycardia who presented to the emergency department complaints of left-sided chest pain. Patient reports that he started expressing left-sided chest pain and pressure while he was walking. He did take n itroglycerin and aspirin at home prior to arrival and he also did receive aspirin and nitro by the paramedics. He reports that the symptoms that started 3 hours prior and they remain constant. Patient reported that he also had some radiation to the left side of his arm and to his back. He denies any nausea vomiting or diarrhea. Denies any shortness of breath. Denies any diaphoresis. Of note patient did have a left heart catheterization performed at [facility] in November 2018 which did not show any significant obstruction in the coronaries as per the job cost estimator. Allergies: NKDA Medications: See [facility] Hospital Course Overnight, symptoms resolved and he was chest-pain free in the morning. He had three negative troponins. On telemetry he did have a brief run of Vtach, but was asymptomatic. He also was bradycardic down to the 40s, but had appropriate chronotropic response with activity and again was asymptomatic. Apparently he had been off carvedilol due to bradycardia, but it was recently restarted by his primary care doctor. The patient will be discharged. No further cardiac workup needed right now. He will see his job cost estimator in clinic (No longer follows Dr. Sanchez). He was instructed to stop the carvedilol until he sees his job cost estimator. Blood pressure was fine on his ACEi only. Home Meds Active Scripts Captopril* (Captopril*) 12.5 Mg Tablet, 12.5 MG PO BID, #60 TAB Prov:YANET COLLADO Stefan EXPORT DOCUMENTS CLERK 11/27/18 Reported Medications Multivitamins* (Theragran*) 1 Tab Tab, 1 TAB PO DAILY, TAB 04/25/19 Cholecalciferol (D3-5) 5,000 Unit Capsule, 5000 MG PO DAILY take 1 capsule by mouth once daily 04/25/19 Aspirin* (Aspirin* EC) 81 Mg Tablet.dr, 81 MG PO DAILY, TAB 11/24/18 Cholecalciferol* (Vitamin D3*) 1,000 Unit Tablet, 1000 UNIT PO DAILY, TAB 11/24/18 Atorvastatin* (Atorvastatin*) 40 Mg Tablet, 20 MG PO QHS, #30 TAB-CAP 11/24/18 Omeprazole* (Omeprazole*) 20 Mg Capsule.dr, 20 MG PO DAILY, #30 CAP 11/24/18 Discontinued Reported Medications Hydroxyzine Hcl* (Atarax*) 25 Mg Tab, 25 MG PO BID for 30 Days, #60 take 1 tablet by mouth twice a day 04/25/19 Carvedilol* (Carvedilol*) 3.125 Mg Tablet, 3.125 MG PO DAILY for 30 Days, #30 04/25/19 Gemfibrozil* (Lopid*) 600 Mg Tablet, 600 MG PO BID, TAB 11/24/18 Follow-up Plan 1. Continue medications as prescribed. Stop taking carvedilol because your heart rate is low. See your job cost estimator before restarting it. 2. For pressure-like chest pain not responsive to nitroglycerin, return to the emergency room. Primary Care Provider Not On Staff Doctor Time spent on discharge: > 30 minutes Pending Labs Laboratory Tests Test 04/24/19 19:30 04/25/19 01:56 04/25/19 05:15 04/25/19 07:29 White Blood 7.1 7.0 Count 10^3/ul (4.8-10 10^3/ul (4.8-1 .8) 0.8) Red Blood 4.57 4.26 Count 10^6/ul (4.70-6 10^6/ul (4.70- .10) 6.10) Hemoglobin 13.9 12.9 g/dl (14.0-18.0 g/dl (14.0-18. ) 0) Hematocrit 42.0 39.3 % (42.0-52.0) % (42.0-52.0) Mean 91.9 92.3 Corpuscular fl (82.0-101.0) fl (82.0-101.0 Volume ) Mean 30.4 30.3 Corpuscular pg (29.0-33.0) pg (29.0-33.0) Hemoglobin Mean 33.1 32.8 Corpuscular g/dl (32.0-37.0 g/dl (32.0-37. Hemoglobin Conc ) 0) ent Red Cell 13.2 13.2 Distribution % (11.5-14.5) % (11.5-14.5) Width Platelet Count 222 209 10^3/UL (140-41 10^3/UL (140-4 5) 15) Mean Platelet 11.2 11.4 Volume fl (7.4-10.4) fl (7.4-10.4) Immature 0.100 0.100 Granulocytes % % (0.001-0.429) % (0.001-0.429 ) Neutrophils % 41.6 40.7 % (39.0-77.0) % (39.0-77.0) Lymphocytes % 41.3 42.1 % (15.0-51.0) % (15.0-51.0) Monocytes % 12.7 13.1 % (0.0-11.0) % (0.0-11.0) Eosinophils % 3.7 % (0.0-7.0) 3.4 % (0.0-7.0) Basophils % 0.6 % (0.0-2.0) 0.6 % (0.0-2.0) Nucleated Red 0.0 0.0 Blood Cells % /100WBC (0.0-0. /100WBC (0.0-0 0) .0) Immature 0.010 0.010 Granulocytes # 10^3/ul (0.0-0. 10^3/ul (0.0-0 031) .031) Neutrophils # 2.9 2.9 10^3/ul (1.6-7. 10^3/ul (1.6-7 5) .5) Lymphocytes # 2.9 3.0 10^3/ul (0.8-2. 10^3/ul (0.8-2 9) .9) Monocytes # 0.9 0.9 10^3/ul (0.3-0. 10^3/ul (0.3-0 9) .9) Eosinophils # 0.3 0.2 10^3/ul (0.0-0. 10^3/ul (0.0-0 5) .5) Basophils # 0.0 0.0 10^3/ul (0.0-0. 10^3/ul (0.0-0 1) .1) Nucleated Red 0.0 0.0 Blood Cells # 10^3/ul (0.0-0. 10^3/ul (0.0-0 0) .0) Sodium Level 140 139 mmol/L (135-144 mmol/L (135-14 ) 4) Potassium 3.9 3.3 Level mmol/L (3.5-5.1 mmol/L (3.5-5. ) 1) Chloride Level 107 108 mmol/L (97-110) mmol/L (97-110 ) Carbon Dioxide 25 28 Level mmol/L (21-31) mmol/L (21-31) Anion Gap 8 (5-13) 3 (5-13) Blood Urea 19 mg/dl (7-20) 18 Nitrogen mg/dl (7-20) Creatinine 1.07 0.92 mg/dl (0.61-1.2 mg/dl (0.61-1. 4) 24) Est Glomerular > 60 > 60 Filtrat mL/min (>60) mL/min (>60) Rate mL/min Glucose Level 129 102 mg/dl (70-220) mg/dl (70-220) Calcium Level 9.9 9.5 mg/dl (8.4-10.2 mg/dl (8.4-10. ) 2) Troponin I < 0.012 0.018 < 0.012 ng/ml (0.000-0. ng/ml (0.000-0 ng/ml (0.000-0 120) .120) .120) Creatine 54 46 Kinase IU/L (23-200) IU/L (23-200) Creatine Kinase 3.0 3.1 Index Creatinine 1.61 1.43 Kinase MB ng/ml (0.0-2.4 ng/ml (0.0-2.4 (Mass) ) ) Hemoglobin A1c 5.0 % (0-5.9) Magnesium 2.1 Level mg/dl (1.7-2.5 ) Total 0.7 Bilirubin mg/dl (0.2-1.3 ) Direct 0.00 Bilirubin mg/dl (0.00-0. 20) Indirect 0.7 Bilirubin mg/dl (0-1.1) Aspartate Amino 23 Transf (AST/SGO IU/L (15-46) T) Alanine 25 Aminotransferas IU/L (13-69) e (ALT/SGPT) Alkaline 41 Phosphatase IU/L (42-121) Total Protein 6.5 g/dl (6.1-8.1) Albumin 3.5 g/dl (3.3-4.9) Globulin 3.00 g/dl (1.3-3.2) Albumin/Globuli 1.16 n Ratio Triglycerides 74 Level mg/dl (0-149) Cholesterol 116 Level mg/dl (100-200 ) LDL 67 mg/dl Cholesterol, Calculated HDL 34 Cholesterol mg/dl (30-78) Cholesterol/HDL 3.4 RATIO Ratio Thyroid 1.490 Stimulating MIU/L (0.465-4 Hormone (TSH) .680) KAELA BULLOCK MD Apr 25, 2019 15:23
[2019-04-25] MEDS ORDERED: ATORVASTATIN 20 MG TAB PO SCH (21:00)
== END 2019-04-25 15:10 | disposition home or self-care (01) ==
LOC: E/R 19:26 → 6WM 20:41 → CANRESERV 22:48
PROVIDERS: ADMIT Family Medicine; ATTEND Internal Medicine
DX: R07.89 Other chest pain (principal); I10 Essential (primary) hypertension; E78.5 Hyperlipidemia, unspecified; R00.1 Bradycardia, unspecified; Z72.0 Tobacco use; Z79.82 Long term (current) use of aspirin
CPT/HCPCS: 36415; 71045; 80048; 80053; 80061; 82550; 82553; 83036; 83735; 84443; 84484; 85025; 93005; J1815; Z7500; Z7502; Z7610; 99217; G0378